=== PATIENT | female | born 1995 | race Two or more races ===

== ENCOUNTER 2023-02-22 11:02 | Outpatient (REF) | payer OTHER, SELFPAY ==
[2023-03-01 22:18] LABS: HPV mRNA E6/E7 rflx Not Detected (Not Detected)
== END 2023-02-22 11:03 | disposition home or self-care (01) ==
LOC: HO.LNP 11:02
PROVIDERS: PCP Internal Medicine; Visit Provider Obstetrics & Gynecology
DX: N93.9 Abnormal uterine and vaginal bleeding, unspecified (principal); L68.0 Hirsutism; Z32.02 Encounter for pregnancy test, result negative
CPT/HCPCS: 81025; 87624; 88142; 99202

== ENCOUNTER 2023-02-22 11:02 | Outpatient (AMB) | payer OTHER, SELFPAY ==
--- NOTE | 2023-02-22 11:29 | MHC.OFFVIS ---
Intake Vital Signs 02/22/23 11:30 Height 5 ft 7 in Weight 377 lb BMI 59.0 Intake Visit Reasons: AUB/PCP Referral Lead Nuclear Medicine Technologist Required: Yes Lead Nuclear Medicine Technologist Language: Independent Living Advisor Name: Kika Information Interpreted: non-clinical & clinical Grab Setter: Grab Setter Present (Kika) Accompanied by: Mother Allergies No Known Allergies Allergy (Verified 02/22/23 11:37) Is last menstrual period known: Yes Last menstrual period: 07/15/22 Post menopausal: No HPI HPI Comments History of Present Illness Details Presenting referred from PCP regarding abnormal uterine bleeding associated with hair growth no nipple discharge. Last co testing was many years ago [facility] Medical History Diabetes Hypertension Family History Maternal Aunt Breast cancer Maternal Uncle Cancer Female Reproductive History Menstrual Age of Menarche: 8 Date of last menstrual period: 07/15/22 control method: none Total pregnancies: 0 Review of Systems Const All systems reviewed & are unremarkable except as noted in HPI and below Card Reports as per HPI Resp Reports as per HPI GI Reports as per HPI and Reports no additional complaints Reports as per HPI Physical Exam Vital Signs: BMI result Body Mass Index 59.0 Const General: cooperative, healthy appearing and comfortable Chest Chest palpation & inspection: normal inspection of the chest and normal palpation of entire chest wall Breast/axilla inspection: normal inspection of the breasts and normal inspection of the axillae Breast/axilla palpation: normal palpation of the breasts, normal palpation of the axillae and no axillary lymphadenopathy Resp Effort & Inspection: normal respiratory effort Auscultation: clear to auscultation bilaterally Percussion: percussion normal Cardio Palpation: normal PMI Rate: regular rate Rhythm: regular rhythm Heart sounds: no murmurs and no rubs Peripheral pulses: Peripheral pulses 2+ throughout GI Inspection: Yes normal to inspection Palpation (GI): Soft to palpation, nontender, no guarding, not rigid and No hepatosplenomegaly present Percussion: Yes normal to percussion Auscultation: normal bowel sounds Rectal Exam - Female: deferred General: Yes bladder normal to palpation External Female Exam: No lesion Speculum Exam - Vagina: normal appearance of the vagina, normal palpation, normal vaginal discharge and not erythematous Speculum Exam - Cervix: normal appearance of the cervix and normal palpation Bimanual exam- vagina & uterus: normal bimanual exam, normal palpation, uterine size normal, bladder normal to palpation, consistency normal and normal palpation Bimanual Exam- Adnexa, other: normal adnexae, no masses and no tenderness Results AMB Test Urine AMB Test Urine Negative Last Edit by KYLE Burt on 02/22/23 11:48 Assessment & Plan Assessment & Plan (1) Abnormal uterine bleeding (AUB): Comment: Hirsutism, diabetes and hypertension possible metabolic syndrome/PCOS Code(s): N93.9 - Abnormal uterine and vaginal bleeding, unspecified Plan: Co testing done, GC and chlamydia taken CBC, TSH, prolactin, FSH/LH, 17 hydroxyprogesterone and testosterone total and free, HCG, and pelvic ultrasound ordered. Discussed with the patient the different causes of abnormal bleeding including thyroid disorders, uterine and ovarian pathology, endometrial hyperplasia, carcinoma and other potential causes. Discussed with the patient the work up including CBC (to r/o anemia), TSH, pelvic Ultrasound, endometrial biopsy to r/o endometrial pathology. All questions answered and the patient verbalized understanding. Instructed the patient to schedule an appointment for an endometrial biopsy in 2 weeks. Orders: Orders AMB HCG Urine Test Today Z32.02 - Encounter for test, result negative 17 Hydroxyprogesterone Today L68.0 - Hirsutism Follicle Stimulating Hormone Today N93.9 - Abnormal uterine and vaginal bleeding, unspecified HCG Quantitative Today N93.9 - Abnormal uterine and vaginal bleeding, unspecified Lutenizing Hormone Today N93.9 - Abnormal uterine and vaginal bleeding, unspecified Prolactin Today N93.9 - Abnormal uterine and vaginal bleeding, unspecified Testosterone, Free/Total Today L68.0 - Hirsutism TSH reflex Free T4 Today N93.9 - Abnormal uterine and vaginal bleeding, unspecified Complete Blood Count no Diff Today N93.9 - Abnormal uterine and vaginal bleeding, unspecified US pelvic and transvaginal Today N93.9 - Abnormal uterine and vaginal bleeding, unspecified Coding Level of Care Code New Pt Level 3 (14265) Diagnoses Abnormal uterine bleeding (AUB) N93.9
[2023-02-22 11:30] VITALS: BMI 59.0
== END 2023-02-22 12:01 | disposition home or self-care (01) ==
LOC: HO.HWS 11:02
PROVIDERS: PCP Internal Medicine; Visit Provider Obstetrics & Gynecology
DX: N93.9 Abnormal uterine and vaginal bleeding, unspecified (principal); Z32.02 Encounter for pregnancy test, result negative
CPT/HCPCS: 99203

== ENCOUNTER 2023-02-22 12:11 | Outpatient (REF) | payer OTHER, SELFPAY ==
[2023-02-22 13:58] LABS: Hematocrit 38.8 % (37.0-47.0); Hemoglobin 11.8 g/dl (12.0-16.0); Mean Corpuscular HGB Conc 30.4 g/dl (31.0-35.0); Mean Corpuscular Hemoglobin 24.9 pg (27.0-33.0); Mean Platelet Volume 13.1 fL (9.4-12.3); Platelet Count 213 X10*3/uL (160-400); Red Blood Count 4.73 X10*6/uL (4.20-5.50); Red Cell Distribution Width 15.9 % (11.0-16.0); White Blood Count 3.9 X10*3/uL (4.8-10.8)
[2023-02-22 14:32] LABS: HCG Quantitative < 2 mIU/mL
[2023-02-22 14:55] LABS: TSH reflex Free T4 1.73 uIU/mL (0.32-4.0)
[2023-02-22 17:47] LABS: CT PCR NOT DETECTED (Not Detect.); NG PCR NOT DETECTED (Not Detect.)
[2023-02-23 23:04] LABS: Lutenizing Hormone 1.7 mIU/mL; Prolactin 5.8 ng/mL
[2023-02-28 14:17] LABS: Testosterone, Total 18 ng/dL (2-45)
== END 2023-02-22 12:12 | disposition home or self-care (01) ==
LOC: HO.LAB 12:11
PROVIDERS: Visit Provider Obstetrics & Gynecology
DX: N93.9 Abnormal uterine and vaginal bleeding, unspecified (principal); L68.0 Hirsutism
CPT/HCPCS: 0353U; 83001; 83002; 83498; 84146; 84402; 84403; 84443; 84702; 85027

== ENCOUNTER 2023-03-07 11:21 | Outpatient (REF) | payer OTHER, SELFPAY ==
--- NOTE | ~2023-03-07 | US_ITS ---
EXAMINATION: US PELVIS COMPLETE CLINICAL INFORMATION: None COMPARISON: None TECHNIQUE: Transabdominal and transvaginal imaging was performed. Technically limited exam. FINDINGS: The uterus is of normal size and echogenicity measuring 8.8 x 3.4 x 5.7 cm. A regular homogeneous endometrium is identified measuring 0.8 cm. Nabothian cysts in the cervix. Is fluid in the endocervical canal. Ovaries were not identified sonographically. No adnexal mass. There is no pelvic free fluid. US/US pelvic and transvaginal IMPRESSION: 1. Trace fluid in the endocervical canal. 2. Ovaries were not identified sonographically. No adnexal mass.
== END 2023-03-07 11:22 | disposition home or self-care (01) ==
LOC: HO.US 11:21
PROVIDERS: PCP Internal Medicine; Visit Provider Obstetrics & Gynecology
DX: N93.9 Abnormal uterine and vaginal bleeding, unspecified (principal)
CPT/HCPCS: 76830; 76856

== ENCOUNTER 2023-04-16 12:07 | Outpatient (AMB) | payer OTHER, SELFPAY ==
--- NOTE | 2023-04-16 12:20 | MHC.OFFVIS ---
Intake Vital Signs 04/16/23 12:21 Height 5 ft 7 in Weight 377 lb BMI 59.0 BP 126/80 Intake Visit Reasons: EMB /US Follow up System Support Technician: System Support Technician Present Allergies No Known Allergies Allergy (Verified 04/16/23 12:20) [facility] Medical History Diabetes Hypertension Family History Maternal Aunt Breast cancer Maternal Uncle Cancer Female Reproductive History Menstrual Age of Menarche: 8 Physical Exam Vital Signs: Last Vital Signs BP 126/80 04/16/23 12:21 BMI result Body Mass Index 59.0 Office Procedures Endometrial Biopsy Details: The patient was counseled regarding the indication and benefits of endometrial sampling to rule out endometrial pathology including not limited to endometrial hyperplasia or endometrial cancer and others; The alternatives (Either do nothing vs. hysteroscopy D&C) & the risks were discussed with the patient including but not limited: pain, uterine perforation, bleeding, infection, possible injury to bladder, bowel, ureter, possible need for blood transfusion with all its possible risks. The patient verbalized understanding all questions answered and signed consent. UPT done in the office was negative The patient was placed into the dorsal lithotomy position; a speculum was inserted in the vagina. Using aseptic technique for the procedure, the cervix was cleansed with Betadine. The anterior lip of the cervix was grasped with a single tooth tenaculum. The uterus was sounded to 7 cm with a 4 mm Pipelle was used. Tissues samples were obtained and placed in formalin, in a patient labeled container and sent to the pathology department. At the end of the procedure, there was minimal bleeding noted The patient tolerated the procedure well and was discharged in good condition with the following instructions: Nothing in the vagina until the bleeding stops. No sex until the bleeding stops, to call if any of the following occurs: fever (>100.4), flu-like symptoms, abdominal pain, heavy bleeding, four smelling vaginal discharge. The patient was instructed to schedule a Follow up appointment in 2 weeks to discuss pathology results of the biopsy and treatment options. This note was generated with a voice recognition program. Some errors may have been overlooked during the review of this note. Sometimes these errors may affect the content or meaning of a given sentence. [id number]-[id number] Biopsy Results AMB Test Urine AMB Test Urine Negative Last Edit by Kika Abarca CMA on 04/16/23 12:27 Results Reviewed Results Reviewed: Laboratory Last Values Tst Clinic Negative 04/16/23 12:26 Assessment & Plan Assessment & Plan Orders: Orders AMB HCG Urine Test Today Z32.02 - Encounter for test, result negative AMB Endometrial Biopsy Today N93.9 - Abnormal uterine and vaginal bleeding, unspecified Coding Level of Care Code Procedure Only CPT Codes Endometrial Biopsy - CPT: 92757-[id number] Biopsy ([id number])
[2023-04-16 12:21] VITALS: BP 126/80; BMI 59.0
== END 2023-04-16 12:53 | disposition home or self-care (01) ==
PROVIDERS: PCP Internal Medicine; Visit Provider Obstetrics & Gynecology
DX: N93.9 Abnormal uterine and vaginal bleeding, unspecified (principal); Z32.02 Encounter for pregnancy test, result negative
CPT/HCPCS: 58100; 90714

== ENCOUNTER 2023-04-16 12:07 | Outpatient (REF) | payer OTHER, SELFPAY | END 2023-04-16 12:08 | disposition home or self-care (01) | LOC: HO.LNP 12:07 | PROVIDERS: PCP Internal Medicine; Visit Provider Obstetrics & Gynecology | DX: N93.9 Abnormal uterine and vaginal bleeding, unspecified (principal) | CPT/HCPCS: 58100; 88305 ==

== ENCOUNTER 2023-05-14 09:41 | Outpatient (AMB) | payer OTHER, SELFPAY ==
[2023-05-14 09:45] VITALS: BP 132/84; BMI 59.0
--- NOTE | 2023-05-14 09:45 | A.OFFVIS_ITS ---
Intake Vital Signs 05/14/23 09:45 Height 5 ft 7 in Weight 377 lb BMI 59.0 BP 132/84 Intake Visit Reasons: pre op for hysterescopy Brewery Technician Required: Yes Brewery Technician Language: Social Worker Health Services Name: Kika Abarca Family Preservation Worker: Family Preservation Worker Present Allergies No Known Allergies Allergy (Verified 05/14/23 09:46) Is last menstrual period known: No Post menopausal: No Patient : No Do you need a note to return to daycare/school/sports/work: Yes (for surgery on sunday) HPI HPI Comments History of Present Illness Details Presenting post EMB for follow-up. The pathology showed: Disordered proliferative endometrium with breakdown; few fragments with some features of polyp; no atypia identified. [facility] Medical History Sleep apnea Hypertension Diabetes Family History Maternal Aunt Breast cancer Maternal Uncle Cancer Female Reproductive History Menstrual Age of Menarche: 8 Date of last menstrual period: 05/27/20 Total pregnancies: 2 Full term: 2 Date of last pap smear: 02/27/23 Review of Systems Card Reports as per HPI and Reports no additional complaints Resp Reports as per HPI and Reports no additional complaints GI Reports as per HPI and Reports no additional complaints Reports as per HPI Physical Exam Vital Signs: Last Vital Signs BP 132/84 05/14/23 09:45 BMI result Body Mass Index 59.0 Const General: cooperative, healthy appearing and comfortable Chest Chest palpation & inspection: normal inspection of the chest and normal palpa tion of entire chest wall Breast/axilla inspection: normal inspection of the breasts and normal inspection of the axillae Breast/axilla palpation: normal palpation of the breasts, normal palpation of the axillae and no axillary lymphadenopathy Resp Effort & Inspection: normal respiratory effort Auscultation: clear to auscultation bilaterally Percussion: percussion normal Cardio Palpation: normal PMI Rate: regular rate Rhythm: regular rhythm Heart sounds: no murmurs and no rubs Peripheral pulses: Peripheral pulses 2+ throughout GI Inspection: Yes normal to inspection Palpation (GI): Soft to palpation, nontender, no guarding, not rigid and No hepatosplenomegaly present Percussion: Yes normal to percussion Auscultation: normal bowel sounds Rectal Exam - Female: deferred Assessment & Plan Assessment & Plan (1) Abnormal uterine bleeding (AUB): Comment: Endometrial polyp on EMB pathology Hirsutism, diabetes and hypertension possible metabolic syndrome/PCOS Code(s): N93.9 - Abnormal uterine and vaginal bleeding, unspecified Plan: Discussed with the patient the results the EMB pathology showing a features of endometrial polyp, recommended hysteroscopy D&C possible polypectomy/myomectomy. Discussed with the patient the procedure , all benefits and risks including but not limited to inability to complete the procedure , bleeding, infection, possible need for blood transfusion with all its risk ( HIV,syphilis, Hepatitis, anaphylaxis shock, others..), injury to bladder, rectum, possible need for laparoscopy/laparotomy or hysterectomy. The patient verbalized understanding and signed the consent. Instructions given the patient to schedule a 2 week postoperative appointment Coding Level of Care Code Est Pt Level 3 (68484) Diagnoses Abnormal uterine bleeding (AUB) N93.9
== END 2023-05-14 10:10 | disposition home or self-care (01) ==
PROVIDERS: PCP Internal Medicine; Visit Provider Obstetrics & Gynecology
DX: N93.9 Abnormal uterine and vaginal bleeding, unspecified (principal)
CPT/HCPCS: 99213

== ENCOUNTER → 2023-05-14 09:41 | Outpatient (BNVA) | payer OTHER, SELFPAY | PROVIDERS: PCP Internal Medicine; Visit Provider Obstetrics & Gynecology | DX: N93.9 Abnormal uterine and vaginal bleeding, unspecified (principal) | CPT/HCPCS: 99212 ==

== ENCOUNTER → 2023-05-21 06:56 | Day surgery (SDC) | payer OTHER, SELFPAY ==
--- NOTE | 2023-05-18 08:13 | P.CONAN_ITS ---
Documented by User: Eugenia Perez NP 05/31/23 13:40 HPI - Anesthesia Eval Consult details Narrative: Cx'd DOS for uncontrolled HTN 28yo F for D&C Hysteroscopy,poss myomectomy,poss polypectomy PMFSH Active Problems Active Problems: All Active Problems (Updated 05/14/23 @ 09:59 by Jayme Soares MD) Abnormal uterine bleeding (AUB) (Acute) Past Medical History Medical History Sleep apnea Hypertension Diabetes Family History Family History Maternal Aunt Breast cancer Maternal Uncle Cancer Meds Allergies Allergy/AdvReac Type Severity Reaction Status Date / Time No Known Allergies Allergy Verified 05/21/23 07:02 Home Medications Medication Instructions Recorded Confirmed Last Taken Type acetaminophen 325 mg tablet 650 mg PO TID PRN mild pain 02/22/23 Unknown Histor y albuterol sulfate 90 mcg/actuation 2 puff inhalation Q4H PRN wheezing 02/22/23 Unknown History aerosol inhaler (Ventolin HFA) amlodipine 5 mg tablet 5 mg PO DAILY blood pressure 02/22/23 Unknown History ferrous sulfate 324 mg (65 mg 324 mg PO DAILY 02/22/23 Unknown History iron) tablet,delayed release fluticasone propionate 110 2 puff inhalation BID 02/22/23 Unknown History mcg/actuation HFA aerosol inhaler (Flovent HFA) metformin 500 mg tablet,extended 0 mg PO 02/22/23 Unknown History release 24 hr naproxen 500 mg tablet 500 mg PO BID PRN pain 02/22/23 Unknown History omeprazole 20 mg capsule,delayed 20 mg PO BID 02/22/23 Unknown History release Exam Exam Date and Time: May 18, 2023 0813 Assessment and Plan Assessment Anesthesia Assessment: Chart Reviewed Documented by User: Femi Martínez MD 06/11/23 09:04 HPI - Anesthesia Eval Consult details Narrative: Cx'd Day of Surgery for uncontrolled HTN. 28yo F for D&C Hysteroscopy,poss myomectomy,poss polypectomy PMFSH Past Medical History Medical History Sleep apnea Hypertension Diabetes Family History Family History Maternal Aunt Breast cancer Maternal Uncle Cancer Meds Allergies Allergy/AdvReac Type Severity Reaction Status Date / Time No Known Allergies Allergy Verified 05/21/23 07:02 Home Medications Medication Instructions Recorded Confirmed Last Taken Type acetaminophen 325 mg tablet 650 mg PO TID PRN mild pain 02/22/23 Unknown History albuterol sulfate 90 mcg/actuation 2 puff inhalation Q4H PRN wheezing 02/22/23 Unknown History aerosol inhaler (Ventolin HFA) amlodipine 5 mg tablet 5 mg PO DAILY blood pressure 02/22/23 Unknown History ferrous sulfate 324 mg (65 mg 324 mg PO DAILY 02/22/23 Unknown History iron) tablet,delayed release fluticasone propionate 110 2 puff inhalation BID 02/22/23 Unknown History mcg/actuation HFA aerosol inhaler (Flovent HFA) metformin 500 mg tablet,extended 0 mg PO 02/22/23 Unknown History release 24 hr naproxen 500 mg tablet 500 mg PO BID PRN pain 02/22/23 Unknown History omeprazole 20 mg capsule,delayed 20 mg PO BID 02/22/23 Unknown History release
[2023-05-21 07:08] VITALS: BMI 59.0
[2023-05-21 07:21] LABS: Glucose, Whole Blood 200 mg/dL (60-115)
--- NOTE | 2023-05-21 07:55 | PC.NURSE ---
Dr. Martínez updated that patient BP was 179/127, different arm, different sized cuff used after 15 minutes and next result was 168/111. Patient stated that she also stopped taking her metformin on her own last month due to diarrhea, and she did not update her PCP regarding it. Patient POC was 200. After Dr. Martínez assessed patient, we were notified that Dr. Soares had cancelled the case due to personal reasons. Patient was educated by Dr. Martínez and grocery team member that the case is cancelled and that the patient will require medical clearance prior to re-scheduled date and he also educated patient regarding her diabetes diagnosis and bp results and importance of compliance. Patient verbalized understanding of all and left with family. No IV was placed this morning. Patient left will her belongings which was clothes only.
== END ==
PROVIDERS: PCP Internal Medicine; Visit Provider Obstetrics & Gynecology
DX: N93.9 Abnormal uterine and vaginal bleeding, unspecified (principal); Z53.8 Procedure and treatment not carried out for other reasons; I10 Essential (primary) hypertension; E11.9 Type 2 diabetes mellitus without complications
CPT/HCPCS: 82947

== ENCOUNTER 2023-06-15 10:28 | Day surgery (SDC) | payer OTHER, SELFPAY ==
[2023-06-15] VITALS (9 sets, daily range): BP systolic 122–149; BP diastolic 77–100; PULSE 84–98; RESP 16–40; TEMP 36.5–37.2; O2SAT 96–100; BMI 61.0
--- NOTE | 2023-06-15 09:43 | HO.ANESPROP2 ---
HPI - Anesthesia Eval Consult details Narrative: 28 yo female patient for D&C, Hysteroscopy, poss myomectomy, poss polypectomy PMFSH Active Problems Active Problems: All Active Problems (Updated 06/15/23 @ 09:47 by Kelly Wynn MD) Abnormal uterine bleeding (AUB) (Acute) HODA. Uses CPAP HTN DM Asthma. SOB with climbing stairs but only uses inhaler prn Past Medical History Medical History Sleep apnea Hypertension Diabetes Family History Family History Maternal Aunt Breast cancer Maternal Uncle Cancer Family history of problems with anesthesia: No Surgical History Surgical History (Updated 06/15/23 @ 10:58 by Hiwot Alex) Hx of tonsillectomy History of Problems with Anesthesia: No Social History Social History Patient Tobacco Use Status: Never used Tobacco Meds Allergies Allergy/AdvReac Type Severity Reaction Status Date / Time No Known Allergies Allergy Verified 06/15/23 10:59 Home Medications Medication Instructions Recorded Confirmed Last Taken Type acetaminophen 325 mg tablet 650 mg PO TID PRN mild pain 02/22/23 06/15/23 Unknown History albuterol sulfate 90 mcg/actuation 2 puff inhalation Q4H PRN wheezing 02/22/23 06/15/23 Unknown History aerosol inhaler (Ventolin HFA) amlodipine 5 mg tablet 10 mg PO DAILY blood pressure 02/22/23 06/15/23 06/15/23 History ferrous sulfate 324 mg (65 mg 324 mg PO DAILY 02/22/23 06/15/23 06/14/23 History iron) tablet,delayed release fluticasone propionate 110 2 puff inhalation BID 02/22/23 06/15/23 Unknown History mcg/actuation HFA aerosol inhaler (Flovent HFA) metformin 500 mg tablet,extended 1,500 mg PO DAILY 02/22/23 06/15/23 06/14/23 History release 24 hr omeprazole 20 mg capsule,delayed 20 mg PO BID 02/22/23 06/15/23 06/15/23 History release Exam Height,Weight and Vital Signs: Height 5 ft 7 in Weight 176.6 kg Vital Signs Temp Pulse Resp BP Pulse Ox O2 Del Method 06/15/23 11:02 98.4 F 89 16 149/100 H 96 Room Air Pertinent Lab Results Pertinent Lab Results: Lab Results 06/15/23 06/15/23 Range/Units 10:40 10:58 POC Glucose 129 H (60-115) mg/dL Urine Test NEGATIVE (NEGATIVE) Airway Mallampati Class: III TM Dist: >3cm Neck ROM: Full Loose/Missing/Broken Teeth: Yes (Missing molars. Front teeth misshapen and small. Look like chipped but patient denies) Heart: RRR Lungs: CTAB. No wheezing Assessment and Plan Assessment Anesthesia Assessment: Anesthesia Plan Discussed and Chart Reviewed Final Anesthetic Review Family History of Problems with Anesthesia: No History of Problems with Anesthesia: No NPO: Yes ASA Class: III Final Preanesthetic Review: No Changes in Pt Med Stat, Meds/Allgs Chart Reviewed, Consent Obtained/Reviewed and Anes Risks/Benef Reviewed Patient Risk: Intermediate Procedure Risk: Low Assessment/Block/Sedation in SS: Assess/Block/Sedation-SS Anesthetic Plan Anesthetic Plan: GA Disposition: Standard PACU
[2023-06-15 10:59] LABS: UPreg QC Valid YES; Urine Pregnancy NEGATIVE (NEGATIVE)
[2023-06-15 11:05] LABS: Glucose, Whole Blood 129 mg/dL (60-115)
[2023-06-15] MEDS: Lactated Ringers 1,000 ML 100 ML IVCONT (11:32)
--- NOTE | 2023-06-15 11:41 | MHC.SHP ---
Pre-Procedural Eval Section A Date of Service: 06/15/23 The patient is an INPATIENT: No Changes since office visit: No Cold of Flu in the past 2 weeks, No New Medical Problems, No Changes in Medication and No Patient answered all questions The History & Physical has been completed within 30 days and I have reviewed it.: Yes Section B Chief Complaint: Abnormal uterine and vaginal bleeding, unspecified Allergies: Allergies Allergy/AdvReac Type Severity Reaction Status Date / Time No Known Allergies Allergy Verified 06/15/23 10:59 Plan Diagnosis/Plan: Unchanged I have reviewed the history and physical and performed a pertinent physical examination on my patient. No changes have occurred unless specified. Time Spent With Patient Time: Total time managing care of this patient today ____ minutes.
--- NOTE | 2023-06-15 12:40 | PM.OP ---
Brief Operative Note Date of Service: 06/15/23 Pre-op diagnosis: Abnormal uterine bleeding with Endometrial polyp on EMB pathology Post-op diagnosis: same (Endometrial polyp) Procedure: Hysteroscopy D&C, Polypectomy Surgeon: Jayme Soares MD Anesthesia: GLMA Was an Dough Cutter used for this Procedure?: No Estimated blood loss (mL): 0 Pathology: other (Endometrial Scrapping. Polyp) Condition: stable Disposition: PACU
--- NOTE | 2023-06-15 12:41 | W.PM.OPN ---
Operative Note Operative Note Date of Service: 06/15/23 Narrative: Preop Diagnosis: Abnormal uterine bleeding with Endometrial polyp on EMB pathology Operation: Diagnostic Hysteroscopy, Dilataion & Curettage and polypectomy Post Op Diagnosis: Endometrial Polyp QBL: Minimal Anesthesia: GLMA Surgeon: Jayme Soares MD Single End Sewer: None Complication: None Pathology: Endometrial Scrapings, Endometrial polyp Procedure: The patient was put in the dorsal lithotomy position, scrubbed, and draped in the usual manner. A sterile speculum was inserted in the patient's vagina. The anterior lip of the cervix was grasped with a single tooth tenaculum. The cervix was dilated up to 5 mm, then the scope was inserted in the patient's uterus. Inspection revealed endometrial polyp. The Myosure Reach device was used; it was introduced through the operative channel and polypectomy done with no complications. The scope was then taken out from the uterine cavity, sharp curettings was carried on with minimal to moderate amount of tissues retrieved. At the end of the procedure, all instruments were taken out of the patient uterine and vaginal cavity. The single tooth tenaculum was removed and homeostasis was assured using pressure,. The patient tolerated the procedure well and was transferred to the PACU in a stable condition.
[2023-06-15] MEDS: Acetaminophen 1,000 MG/100 ML PIGGYBACK 400 MG IV (13:26)
--- NOTE | 2023-06-15 13:30 | PC.RT ---
RT called from PACU. RN requested Cpap at bedside post op for pt. Cpap placed at bedside, pt arrive 96% on simple mask, MD requested Cpap on standby, RN aware. Rt return 40 min later, pt awake and coop in bed up 45 degrees, spo2 100% on simple mask. RN states pt ok, cpap on standby at this time, pt in no respiratory distress.
== END 2023-06-15 15:27 | disposition home or self-care (01) ==
PROVIDERS: Nurse Practitioner; PCP Internal Medicine; Visit Provider Obstetrics & Gynecology
PROC: 0UDB8ZZ Extraction of Endometrium, Via Natural or Artificial Opening Endoscopic (ICD-10-PCS; CPT 58558; principal; 2023-06-15 12:20)
DX: N93.9 Abnormal uterine and vaginal bleeding, unspecified (principal); N84.0 Polyp of corpus uteri; I10 Essential (primary) hypertension; E11.9 Type 2 diabetes mellitus without complications; G47.33 Obstructive sleep apnea (adult) (pediatric); J45.909 Unspecified asthma, uncomplicated; Z79.51 Long term (current) use of inhaled steroids; Z79.84 Long term (current) use of oral hypoglycemic drugs; Z79.899 Other long term (current) drug therapy; Z99.89 Dependence on other enabling machines and devices
CPT/HCPCS: 58558; 81025; 82947; 88305; J0131; J1100; J2250; J2405; J2704; J3010

== ENCOUNTER → 2023-06-15 10:28 | Outpatient (BNV) | payer OTHER, SELFPAY | PROVIDERS: PCP Internal Medicine; Visit Provider Obstetrics & Gynecology | DX: N93.9 Abnormal uterine and vaginal bleeding, unspecified (principal); N84.0 Polyp of corpus uteri | CPT/HCPCS: 58558 ==

== ENCOUNTER 2023-06-27 15:32 | Outpatient (AMB) | payer OTHER, SELFPAY ==
--- NOTE | 2023-06-27 15:35 | A.OFFVIS_ITS ---
Intake Vital Signs 06/27/23 15:38 Height 5 ft 7 in Weight 377 lb BMI 59.0 BP 136/84 Intake Visit Reasons: post op Material Control Analyst Required: Yes Material Control Analyst Language: Home Appraiser Name: Kika WRIGHT Information Interpreted: non-clinical & clinical Accompanied by: Mother Allergies No Known Allergies Allergy (Verified 06/27/23 15:39) Is last menstrual period known: No HPI HPI Comments History of Present Illness Details The patient is presenting post hysteroscopy D&C with polypectomy , no complaints minimal vaginal bleeding no feverishness chills or abdominal pain. The pathology showed the following: A. Endometrium, curettage: Disordered proliferative endometrium with breakdown, ectatic vessels, and fibrin thrombi; no atypia or carcinoma. B. Endometrial polyp, resection: Disordered proliferative endometrium with breakdown, ectatic vessels, and fibrin thrombi; no atypia or carcinoma. Comment: Some fragments may be derived from benign polyps. The finding suggest anovulatory cycles The following workup for AUB was done.: H&H= 11.8/38.8 TSH, prolactin, hCG, testosterone total and free, 17 hydroxyprogesterone, GC and chlamydia were negative. Endometrial biopsy pathology showed disordered proliferative endometrium with no evidence of hyperplasia and/or malignancy and fragments of endometrial polyp Co testing was done was negative. Pelvic ultrasound showed the following: IMPRESSION: 1. Trace fluid in the endocervical francisco l. 2. Ovaries were not identified sonograp hically. No adnexal mass. [facility] Medical History Sleep apnea Hypertension Diabetes Surgical History Hx of tonsillectomy Family History Maternal Aunt Breast cancer Maternal Uncle Cancer Social History Patient Tobacco Use Status: Never used Tobacco Female Reproductive History Menstrual Age of Menarche: 8 Review of Systems Const All systems reviewed & are unremarkable except as noted in HPI and below Reports as per HPI and Reports no additional complaints GI Reports no additional complaints Reports no additional complaints Physical Exam Vital Signs: Last Vital Signs BP 136/84 06/27/23 15:38 BMI result Body Mass Index 59.0 Assessment & Plan Assessment & Plan (1) Abnormal uterine bleeding (AUB): Comment: Hirsutism, diabetes and hypertension PCOS Code(s): N93.9 - Abnormal uterine and vaginal bleeding, unspecified Plan: Discussed with the patient the results of her blood work included TSH, prolactin, testosterone, 17 hydroxyprogesterone and pathology the. Explained to the patient that she has a diagnosis of PCOS. D/w the patient the association of PCOS withdiabetes, hypertension, heart disease, hypercholesterolemia, endometrial hyperplasia and/or cancer if untreated and an increase in the risk of breast cancer. Recommended for the patient the following: -To call her pcp to screen for cardiovascular risk and manage hypertension and diabetes. -Instructions given to patient to increase exercise combined with dietary changes reduce the risk of diabetes, explained to the patient that reduction in body weight has been associated with improved rate and decreased hirsutism as well as improvement in glucose tolerance and lipid levels -For her Menstrual cycle control: Discussed with the patient the following options of treatment : Combination low-dose hormonal contraceptives are recommended as the primary treatment for menstrual disorder, but given her diabetes and hypertension is contraindicated Or Progestins: Cyclic progesterone versus Mirena IUD After discussion all the pros and cons risks benefits of each were discussed with the patient, the patient decided to proceed cyclic progesterone since the patient is interested in fertility. So Prometrium 200 mg p.o. q.d. day 15-24 sent to patient's pharmacy. -discussed with the patient different Treatment of Hirsutism or the patient not interested at this point -If the patient is interested in will send pt for a consult to reproductive endocrinology. Instructions given the patient to schedule a 3 months follow-up appointment. All questions answered. Pt verbalized understanding Medications: New progesterone micronized (Prometrium) Take the pill 1 tablet a day cyclically every month from day 15-24 day 1 being the 1st day of next menstrual cycle 200 mg PO BEDTIME 30 caps 0RF 10 days Coding Level of Care Code Est Pt Level 3 (14328) Diagnoses Abnormal uterine bleeding (AUB) N93.9
[2023-06-27 15:38] VITALS: BP 136/84; BMI 59.0
== END 2023-06-27 16:20 | disposition home or self-care (01) ==
LOC: HO.HWS 15:32
PROVIDERS: PCP Internal Medicine; Visit Provider Obstetrics & Gynecology
DX: N93.9 Abnormal uterine and vaginal bleeding, unspecified (principal)
CPT/HCPCS: 99213

== ENCOUNTER → 2023-06-27 15:32 | Outpatient (BNVA) | payer OTHER, SELFPAY | PROVIDERS: PCP Internal Medicine; Visit Provider Obstetrics & Gynecology | DX: N93.9 Abnormal uterine and vaginal bleeding, unspecified (principal) | CPT/HCPCS: 99212 ==

== ENCOUNTER 2023-07-24 08:18 | Emergency (ER) | payer OTHER, SELFPAY ==
--- NOTE | ~2023-07-24 | US_ITS ---
EXAMINATION: US DIAGNOSTIC ULTRASOUND BREAST, RIGHT CLINICAL INFORMATION: Swelling, pain, rule out abscess. COMPARISON: None available. TECHNIQUE: Ultrasound of the right breast is performed with real-time blakely scale imaging and color Doppler. FINDINGS: There is a complex appearing mixed echogenicity fluid collection within the right lower inner breast measuring approximately 2.5 x 1.9 x 0.7 cm, consistent with an abscess. This appears to lie approximately 2 cm deep to this scan. There appears to be mild skin thickening likely related to mastitis. US/US breast RT limited IMPRESSION: -Small mixed echogenicity abscess lower inner quadrant right breast as detailed. -Skin thickening suggestive mastitis right breast. ASSESSMENT: BI-RADS 2: Benign RECOMMENDATION: 1. Patient should be managed based on the clinical impression. 2. Otherwise, routine annual screening mammography at age 38.
--- NOTE | ~2023-07-24 | US_ITS ---
Ultrasound-guided aspiration of the right breast mass. INDICATIONS: Mass in the medial aspect of the right breast After informed and written consent was obtained an official timeout was performed immediately prior to the procedure. PROCEDURE: Initial ultrasound exam demonstrated an ill-defined fluid collection in the medial aspect of the right breast measuring 1.28 x 2.9 x 1.3 cm. The skin was prepped and draped in the usual fashion. 1% Xylocaine was used for local anesthetic. An 18-gauge needle was placed into the fluid collection and 2-3 mL of bloody purulent fluid was aspirated and sent for Gram stain, culture and sensitivity. US/US guided fine needle asp IMPRESSION: Ultrasound-guided aspiration of the medial aspect of the right breast. 2-3 mL of bloody purulent fluid was aspirated and sent for Gram stain, culture and sensitivity.
[2023-07-24 08:22] VITALS: BP 165/105; PULSE 88; RESP 17; TEMP 35.9; O2SAT 96; BMI 58.9
--- NOTE | 2023-07-24 09:12 | ED.GENADULT ---
HPI - General Adult General Chief complaint: General Medical Stated complaint: R Breast Pain Time Seen by Provider: 07/24/23 09:04 Source: patient, family, RN notes reviewed and estate and trust tax principal (Track Mechanic present) Mode of arrival: ambulatory Limitations: language barrier History of Present Illness HPI narrative: This is a 28-year-old Sammarinese-speaking female with a history of hypertension, diabetes, sleep apnea, presenting to the emergency department, accompanied by her mother, with complaints of right breast pain. Patient reports that several years ago she had similar symptoms however this resolved without any antibiotics or surgical intervention. She denies any nipple discharge. Denies any fevers, chills, chest pain, shortness of breath, abdominal pain, nausea, vomiting or diarrhea. Denies any breast trauma. She is not breast-feeding at this time. No other complaints or concerns at this time. MD complaint: Right breast pain Onset (ago): day(s) Quality: aching Pain Consistency: constant Relieving factors: none Exacerbating factors: none Associated symptoms: denies other symptoms Treatments prior to arrival: none Related Data Home Medications Medication Instructions Recorded Confirmed acetaminophen 325 mg tablet 650 mg PO TID PRN mild pain 02/22/23 06/15/23 albuterol sulfate 90 mcg/actuation 2 puff inhalation Q4H PRN wheezing 02/22/23 06/15/23 aerosol inhaler (Ventolin HFA) ferrous sulfate 324 mg (65 mg 324 mg PO DAILY 02/22/23 06/15/23 iron) tablet,delayed release fluticasone propionate 110 2 puff inhalation BID 02/22/23 06/15/23 mcg/actuation HFA aerosol inhaler (Flovent HFA) metformin 500 mg tablet,extended 1,500 mg PO DAILY 02/22/23 06/15/23 release 24 hr omeprazole 20 mg capsule,delayed 20 mg PO BID 02/22/23 06/15/23 release amlodipine 10 mg tablet 10 mg PO DAILY 06/27/23 Previous Rx's Medication Instructions Recorded progesterone micronized 200 mg 200 mg PO BEDTIME 10 days #30 caps 06/27/23 capsule (Prometrium) cephalexin 250 mg capsule 250 mg PO QID 7 days #28 caps 07/24/23 doxycycline hyclate 100 mg capsule 100 mg PO BID 7 days #14 caps 07/24/23 Allergies Allergy/AdvReac Type Severity Reaction Status Date / Time No Known Allergies Allergy Verified 07/24/23 08:21 Review of Systems Review of Systems: Yes all other systems are reviewed and are negative Constitutional: Constitutional: Reports as per [facility] Past Medical History Attestation statement: The following information was validated with the patient. Medical History Sleep apnea Hypertension Diabetes Surgical History Hx of tonsillectomy Family History Family History Maternal Aunt Breast cancer Maternal Uncle Cancer Social History Social History Alcohol intake: current Alcohol intake frequency: a few times a month Patient Tobacco Use Status: Never used Tobacco Smoked in Last 30 Days: No Substance Use Type: Other Substance Use Type Other:: marijuana edibles Substance Use Frequency: Occasionally Advance Directives: No Advance Directives Information Provided: Yes Physical Exam ED Vital Signs: Vital Signs - 24 hr 07/24/23 08:22 07/24/23 09:36 07/24/23 13:56 Temperature 96.7 F L 98.2 F 98 F Pulse Rate 88 91 99 Respiratory Rate 17 20 16 Blood Pressure 165/105 H 147/95 H 160/109 H Pulse Oximetry 96 97 97 Oxygen Delivery Method Room Air Room Air Room Air 07/24/23 16:59 Temperature 98 F Pulse Rate 70 Respiratory Rate 16 Blood Pressure 160/106 H Pulse Oximetry 97 Oxygen Delivery Method Room Air BMI result Body Mass Index 58.9 Const General: cooperative, comfortable and no acute distress Orientation/consciousness: patient oriented x3 Limitations: no limitations [facility] Head: Yes normal to inspection, Yes normocephalic and Yes atraumatic Ears: hearing grossly normal bilaterally General nose exam: Normal external nose present Face and sinus: Yes normal facial exam Mouth: Normal oral and palatal mucosa present, oropharynx normal and moist mucous membranes Throat: Yes posterior oropharynx normal Eyes General: appearance normal, both eyes and all related structures Eyelids: Yes eyelids normal Conjunctivae: conjunctivae normal Sclerae: sclerae normal Pupils: Equal, round and reactive pupils present EOM: EOMs intact bilaterally Neck Neck: Yes normal visual inspection, Yes full ROM and Yes no lymphadenopathy Lymphatic: no lymphadenopathy noted Chest Other: Examination performed with Pita lambert RN, present at all times. Right breast large, with 2 cm x 2 cm indurated mass noted to the right breast at approximately 3 oclock position, with surrounding erythema and warmth. No nipple discharge noted. Chest palpation & inspection: normal inspection of the chest Resp Effort & Inspection: normal respiratory effort and able to speak in complete sentences Auscultation: clear to auscultation bilaterally, no crackles, no rales, no rhonchi and no wheezes Cardio Rate: regular rate Rhythm: regular rhythm Heart sounds: S1 normal heart sound present and S2 normal heart sound present GI Inspection: Yes normal to inspection Skin General skin exam: no rashes or lesions noted Trauma: no lacerations or abrasions Wounds: no wounds Neuro General: patient oriented x3 and moves all extremities Cranial nerves: Yes Equal, round and reactive pupils present Extrem General: Yes normal to inspection Right upper extremity: normal to inspection Left upper extremity: normal to inspection Right lower extremity: normal to inspection Left lower extremity: normal to inspection Course Reevaluation(s) Reevaluation #1: Ultrasound revealing a 2.5 x 1.9 x 0.7 cm fluid collection consistent with an abscess. Dr. Efra bledsoe, surgical PA saw and evaluated patient. Patient needs bedside breast needle aspiration. Time: 13:49 Reevaluation #2: Bedside breast needle aspiration performed at bedside by Samantha landis PA-C without any expression, recommends IR. Reevaluation #3: IR performed ultrasound-guided needle aspiration with success of extracting 2 cc of fluid which was then sent to the lab. Discharge patient on Keflex and doxycycline. Educated the importance of keeping close eye on region and to return with any new or worsening symptoms. Patient will follow-up with surgery in 1 week to ensure that symptoms are improving. Patient understands and agrees with plan. Patient stable for discharge. Medications Administered Discontinued Medications Generic Name Dose Route Start Last Admin Trade Name Freq PRN Reason Stop Dose Admin Lidocaine HCl 5 ml 07/24/23 16:20 07/24/23 16:20 Lidocaine Hcl 1 % Mpf 5 Ml Vial SUBCUT 07/24/23 16:21 5 ml ONCE ONE Administration Medical Decision Making Medical Decision Making MDM Narrative: This is a 28-year-old female, Sammarinese-speaking female with a history of hypertension, diabetes, sleep apnea, presenting to the emergency department with complaints of right breast redness, swelling, and pain x 4 days. On arrival, patient mildly hypertensive at 165/105, patient is afebrile. Patient is nontoxic appearing. Right breast with erythema and induration, concerning for abscess versus cellulitis. Mastitis also considered. Patient has no overlying peau d'orange skin changes. No nipple discharge. No other masses appreciated in the right breast. Plan: Labs, ultrasound right breast Differential Diagnosis Differential Diagnoses: The differential diagnosis associated with the presentation includes See above Admission/Observation Consideration of admission/observation: Escalation of care including admission/observation considered Lab Data MDM Lab Attestation statement: I reviewed the patient's lab results. No leukocytosis, stable H&H, glucose 171, patient has a history of hypertension, mildly elevated LFTs, no previous for comparison 07/24/23 09:42 07/24/23 09:42 Labs: Lab Results 07/24/23 Range/Units 09:42 WBC 5.1 (4.8-10.8) X10*3/uL RBC 4.63 (4.20-5.50) X10*6/uL Hgb 11.5 L (12.0-16.0) g/dl Hct 38.3 (37.0-47.0) % MCV 82.7 (80.0-98.0) fL MCH 24.8 L (27.0-33.0) pg MCHC 30.0 L (31.0-35.0) g/dl RDW 15.9 (11.0-16.0) % Plt Count 232 (160-400) X10*3/uL MPV 11.9 (9.4-12.3) fL Immature Gran % (Auto) 0.2 (0.0-0.4) % Neut % (Auto) 51.4 (45-73) % Lymph % (Auto) 38.9 (20-40) % [place] % (Auto) 7.7 (2-11) % Eos % (Auto) 1.6 (0-4) % Baso % (Auto) 0.2 (0-2) % Lymph # (Auto) 2.0 (1.2-4.9) X10*3/uL [place] # (Auto) 0.4 (0.1-1.2) X10*3/uL Eos # (Auto) 0.1 (0.0-0.4) X10*3/uL Baso # (Auto) 0.0 (0.0-0.2) X10*3/uL Abs Immat Gran (auto) 0.01 (0.00-0.03) X10*3/uL Absolute Neuts (auto) 2.6 (2.0-8.3) x10*3/uL Absolute Nucleated RBC 0.000 (0.0-0.012) X10*3/uL Nucleated RBC % (auto) 0.0 (0.0-0.2) /100WBC Sodium 140 (135-145) mmol/L Potassium 4.1 (3.3-5.1) mmol/L Chloride 104 (96-108) mmol/L Carbon Dioxide 29 (22-29) mmol/L Anion Gap 11 L (12-20) BUN 8 L (9-16) mg/dL Creatinine 0.83 (0.5-1.4) mg/dL Estim Creat Clear Calc 164.6 Estimated GFR > 60 Random Glucose 171 H (60-115) mg/dL Calcium 9.3 (8.4-10.2) mg/dL Total Bilirubin 0.5 (0.0-1.0) mg/dL AST 35 H (5-31) U/L ALT 38 H (0-31) U/L Alkaline Phosphatase 106 (39-117) U/L Total Protein 8.3 H (6.5-8.0) g/dL Albumin 3.6 (3.5-5.0) g/dL Radiology Impression Discussion of test interpretation with radiology: I have reviewed the radiologist's reading. Radiologist Impression: EXAMINATION: US DIAGNOSTIC ULTRASOUND BREAST, RIGHT CLINICAL INFORMATION: Swelling, pain, rule out abscess. COMPARISON: None available. TECHNIQUE: Ultrasound of the right breast is performed with real-time blakely scale imaging and color Doppler. FINDINGS: There is a complex appearing mixed echogenicity fluid collection within the right lower inner breast measuring approximately 2.5 x 1.9 x 0.7 cm, consistent with an abscess. This appears to lie approximately 2 cm deep to this scan. There appears to be mild skin thickening likely related to mastitis. US/US breast RT limited IMPRESSION: -Small mixed echogenicity abscess lower inner quadrant right breast as detailed. -Skin thickening suggestive mastitis right breast. ASSESSMENT: BI-RADS 2: Benign RECOMMENDATION: 1. Patient should be managed based on the clinical impression. 2. Otherwise, routine annual screening mammography at age 38. Dictated By: Chet Rivera MD Chronic Conditions Patient?s care impacted by: Diabetes Discharge Plan Discharge Clinical Impression: Abscess of right breast Patient Disposition: Home, Self-Care Instructions: Mastitis (ED), Abscess (ED) Additional Instructions: You were seen in the emergency department due to pain in your right breast. We are placing you on antibiotics, please complete the full course even if you are feeling better You had an abscess in her right breast which had to be drained with a needle. This was done by Interventional Radiology. The drainage from this abscess was sent to the lab, we will call you with any abnormal results. Please apply warm compresses to the area 6 times per day. Keep a close eye on the region, if increased redness, swelling, fevers, or pain occurs, please return for re-evaluation. Please follow-up with the surgeon, Dr. Kraus, in 1 week to ensure improvement of your symptoms. Call to make an appointment. Lo atendieron en el departamento de emergencias debido a un dolor en el seno derecho. Le estamos recetando antibi?ticos; complete el tratamiento completo incluso si se siente mejor. Ten?a un absceso en el seno derecho que tuvo que ser drenado con reji aguja. [place] fue realizado por Radiolog?a Intervencion[facility]. El drenaje de hiro absceso se envi? al laboratorio; lo llamaremos si hay resultados anormales. Aplique compresas tibias en el ?anastasia 6 veces al d?a. Est? atento a la apolonia?n; si aumenta el enrojecimiento, la hinchaz?n, la fiebre o el dolor, regrese para reji nueva evaluaci?n. Realice un seguimiento con el cirujano, Dr. Kraus, en 1 semana para garantizar la mejora de porfirio s?ntomas. Llama para concertar reji sherrill. Prescriptions: New doxycycline hyclate 100 mg capsule 100 mg PO BID 7 Days Qty: 14 0RF cephalexin 250 mg capsule 250 mg PO QID 7 Days Qty: 28 0RF No Action metformin 500 mg tablet extended release 24 hr 1,500 mg PO DAILY ferrous sulfate 324 mg (65 mg iron) tablet,delayed release (DR/EC) 324 mg PO DAILY omeprazole 20 mg capsule,delayed release(DR/EC) 20 mg PO BID acetaminophen 325 mg tablet 650 mg PO TID PRN (Reason: mild pain) fluticasone propionate [Flovent HFA] 110 mcg/actuation HFA aerosol inhaler 2 puff inhalation BID albuterol sulfate [Ventolin HFA] 90 mcg/actuation HFA aerosol inhaler 2 puff inhalation Q4H PRN (Reason: wheezing) amlodipine 10 mg tablet 10 mg PO DAILY progesterone micronized [Prometrium] 200 mg capsule 200 mg PO BEDTIME 10 Days Qty: 30 0RF Rx Instructions: Take the pill 1 tablet a day cyclically every month from day 15-24 day 1 being the 1st day of next menstrual cycle Referrals: Idris Kraus MD [Physician] - 1 week Pao Rey MD [Primary Care Provider] - Interventions: ED Discharge Assessment Last Done: 07/24/23 16:59 Discharge Date/Time: 07/24/23 16:59 Print Language: Sammarinese
[2023-07-24 09:36] VITALS: BP 147/95; PULSE 91; RESP 20; TEMP 36.8; O2SAT 97
[2023-07-24 09:46] LABS: MANUAL DIFF FLAG NO
[2023-07-24 09:47] LABS: Basophils Percent Auto 0.2 % (0-2); Eosinophils Absolute Auto 0.1 X10*3/uL (0.0-0.4); Eosinophils Percent Auto 1.6 % (0-4); Hematocrit 38.3 % (37.0-47.0); Hemoglobin 11.5 g/dl (12.0-16.0); Imm Gran Abs Auto 0.01 X10*3/uL (0.00-0.03); Imm Gran Pct Auto 0.2 % (0.0-0.4); Lymphocytes Percent Auto 38.9 % (20-40); Mean Corpuscular Hemoglobin 24.8 pg (27.0-33.0); Mean Corpuscular Volume 82.7 fL (80.0-98.0); Mean Platelet Volume 11.9 fL (9.4-12.3); Monocytes Absolute Auto 0.4 X10*3/uL (0.1-1.2); Monocytes Percent Auto 7.7 % (2-11); Neutrophils Absolute Auto 2.6 x10*3/uL (2.0-8.3); Neutrophils Percent Auto 51.4 % (45-73); Platelet Count 232 X10*3/uL (160-400); Red Blood Count 4.63 X10*6/uL (4.20-5.50); Red Cell Distribution Width 15.9 % (11.0-16.0); White Blood Count 5.1 X10*3/uL (4.8-10.8)
[2023-07-24 10:05] LABS: Alanine Aminotransferase 38 U/L (0-31); Albumin Level 3.6 g/dL (3.5-5.0); Alkaline Phosphatase 106 U/L (39-117); Anion Gap 11 (12-20); Aspartate Amino Transferase 35 U/L (5-31); Bilirubin Total 0.5 mg/dL (0.0-1.0); Blood Urea Nitrogen 8 mg/dL (9-16); Calcium 9.3 mg/dL (8.4-10.2); Carbon Dioxide 29 mmol/L (22-29); Chloride 104 mmol/L (96-108); Creatinine Clr Calc Pharmacy 164.6; Estimated Glomerular Filt Rate > 60; Glucose Random 171 mg/dL (60-115); Potassium 4.1 mmol/L (3.3-5.1); Sodium 140 mmol/L (135-145); Total Protein 8.3 g/dL (6.5-8.0)
[2023-07-24 13:56] VITALS: BP 160/109; PULSE 99; RESP 16; TEMP 36.6; O2SAT 97
--- NOTE | 2023-07-24 14:03 | PC.NURSE ---
mariann noriega made aware bp remains elevated- no pain/distress. resting. no new orders
--- NOTE | 2023-07-24 15:02 | P.CONGS_ITS ---
History of Present Illness Consult details Consult date: 07/24/23 Reason for consult: other (breast abscess) Narrative: 28-year-old Panamanian-speaking female with a history of hypertension, diabetes, sleep apnea, presenting to the emergency department, accompanied by her mother, with complaints of right breast pain for 4 days. Patient reports that several years ago she had similar symptoms however this resolved without any antibiotics or intervention. She denies any fever, chills, nipple discharge, trauma to the area. Maternal aunt has hx of breast CA. She is not , post or breast-feeding. Breast US was performed which showed fluid collection within the right lower inner breast measuring approximately 2.5 x 1.9 x 0.7 approximately 2 cm deep to this scan with overlying skin thickening. Review of Systems 2 Constitutional: Constitutional: Denies chills, Denies fever(s) and Denies malaise ENT: Denies dizziness Cardiovascular: Cardiovascular: Denies chest pain and Denies dyspnea Respiratory: Respiratory: Denies dyspnea Gastrointestinal: Gastrointestinal: Denies abdominal pain, Denies nausea and Denies vomiting Integumentary/Breasts: Skin/Breast: Reports as per HPI Neurologic: Denies dizziness PMFSH Past Medical History Medical History Sleep apnea Hypertension Diabetes Family History Family History Maternal Aunt Breast cancer Maternal Uncle Cancer Surgical History Surgical History Hx of tonsillectomy Social History Social History Alcohol intake: current Alcohol intake frequency: a few times a month Patient Tobacco Use Status: Never used Tobacco Smoked in Last 30 Days: No Substance Use Type: Other Substance Use Type Other:: marijuana edibles Substance Use Frequency: Occasionally Advance Directives: No Advance Directives Information Provided: Yes Meds Allergies Allergy/AdvReac Type Severity Reaction Status Date / Time No Known Allergies Allergy Verified 07/24/23 08:21 Home Medications Medication Instructions Recorded Confirmed Last Taken Type acetaminophen 325 mg tablet 650 mg PO TID PRN mild pain 02/22/23 06/15/23 Unknown History albuterol sulfate 90 mcg/actuation 2 puff inhalation Q4H PRN wheezing 02/22/23 06/15/23 Unknown History aerosol inhaler (Ventolin HFA) ferrous sulfate 324 mg (65 mg 324 mg PO DAILY 02/22/23 06/15/23 06/14/23 History iron) tablet,delayed release fluticasone propionate 110 2 puff inhalation BID 02/22/23 06/15/23 Unknown History mcg/actuation HFA aerosol inhaler (Flovent HFA) metformin 500 mg tablet,extended 1,500 mg PO DAILY 02/22/23 06/15/23 06/14/23 History release 24 hr omeprazole 20 mg capsule,delayed 20 mg PO BID 02/22/23 06/15/23 06/15/23 History release amlodipine 10 mg tablet 10 mg PO DAILY 06/27/23 Unknown History Physical Exam 2 Vital Signs: Vital Signs: Last Vital Signs Temp 98 F 07/24/23 13:56 Pulse 99 07/24/23 13:56 Resp 16 07/24/23 13:56 BP 160/109 H 07/24/23 13:56 Pulse Ox 97 07/24/23 13:56 O2 Del Method Room Air 07/24/23 13:56 BMI result Body Mass Index 58.9 Const: General: comfortable, no acute distress and alert O rientation/consciousness: patient oriented x3 Chest: Other: right breast with large fluctuant area at 2-3 o clock with mild overlying skin changes and erythema, very tender to palpation Resp: Effort & Inspection: normal respiratory effort Skin: General skin exam: no rashes or lesions noted Neuro: General: patient oriented x3 and moves all extremities Results Labs 07/24/23 09:42 07/24/23 09:42 Labs: Abnormal lab results 07/24/23 Range/Units 09:42 Hgb 11.5 L (12.0-16.0) g/dl MCH 24.8 L (27.0-33.0) pg MCHC 30.0 L (31.0-35.0) g/dl Anion Gap 11 L (12-20) BUN 8 L (9-16) mg/dL Random Glucose 171 H (60-115) mg/dL AST 35 H (5-31) U/L ALT 38 H (0-31) U/L Total Protein 8.3 H (6.5-8.0) g/dL Short CBC 07/24/23 Range/Units 09:42 WBC 5.1 (4.8-10.8) X10*3/uL Hgb 11.5 L (12.0-16.0) g/dl Hct 38.3 (37.0-47.0) % Plt Count 232 (160-400) X10*3/uL BMP 07/24/23 09:42 Sodium 140 Potassium 4.1 Chloride 104 Carbon Dioxide 29 BUN 8 L Creatinine 0.83 Calcium 9.3 Liver Function 07/24/23 Range/Units 09:42 Total Bilirubin 0.5 (0.0-1.0) mg/dL AST 35 H (5-31) U/L ALT 38 H (0-31) U/L Alkaline Phosphatase 106 (39-117) U/L Albumin 3.6 (3.5-5.0) g/dL All other labs normal. Assessment and Plan (1) Abscess of right breast: Status: Acute Plan 28 year old female with right breast abscess. It was discussed to proceed with aspiration of right breast abscess at bedside and discharge on PO abx. She and her mother were in agreement. This was attempted at bedside (procedure note below) but was unsuccessful. Ultrasound guided drainage was therefore requested. She can follow up in the office in 1 week. The site of procedure was confirmed by the patient. After assuring informed consent, the skin was prepped with Betadine. The fluctuance was palpated and pulled off the chest wall and using an 18 gauge hypo the abscess was aspirated with small amount of purulence expressed. Further aspiration was attempted but no further drainage was collected. Decision was made to stop as the abscess may be deeper than the hypo and would be better drained with US guidance. A culture was obtained and sent with the expressed pus. The patient tolerated the procedure well. Further plan discussed with US guided drainage and she is in agreement. This has been ordered. Procedures Date of Service Date of Service: 07/25/23
[2023-07-24] MEDS: Lidocaine HCl 1 % MPF 5 ML VIAL SUBCUT (16:20)
[2023-07-24 16:59] VITALS: BP 160/106; PULSE 70; RESP 16; TEMP 36.6; O2SAT 97
== END 2023-07-24 16:59 | disposition home or self-care (01) ==
PROVIDERS: Physician Assistant Medical; Emergency Provider Emergency Medicine; PCP Internal Medicine
DX: N61.1 Abscess of the breast and nipple (principal); N64.4 Mastodynia; Z79.899 Other long term (current) drug therapy
CPT/HCPCS: 10005; 36415; 76642; 80053; 85025; 87070; 87077; 87147; 87186; 87205; 99284

== ENCOUNTER → 2023-07-24 08:33 | Outpatient (BNV) | payer OTHER, SELFPAY | PROVIDERS: Emergency Provider Emergency Medicine; PCP Internal Medicine; Visit Provider Physician Assistant Surgical | DX: N61.1 Abscess of the breast and nipple (principal) | CPT/HCPCS: 99284 ==

== ENCOUNTER → 2023-07-24 15:43 | Outpatient (BNV) | payer OTHER, SELFPAY | PROVIDERS: Emergency Provider Emergency Medicine; PCP Internal Medicine; Visit Provider Radiology Vascular & Interventional Radiology | DX: N63.14 Unspecified lump in the right breast, lower inner quadrant (principal) | CPT/HCPCS: 10005 ==

== ENCOUNTER 2023-08-06 12:53 | Outpatient (AMB) | payer OTHER, SELFPAY ==
--- NOTE | 2023-08-06 13:20 | MHC.OFFVIS ---
Intake Vital Signs 08/06/23 13:23 Height 5 ft 7 in Weight 378 lb 6 oz BMI 59.3 BP 172/99 H Blood Pressure Location Lt brachial Position Sitting Pulse 99 Intake Visit Reasons: ER f/u Right breast abscess Intake Note: Patient is seen in office for ER follow up visit, following right breast abscess. Pt c/o: was I&D at the ED with relief, did discharge at the time, currently looking better ER:07/24/23 (I&D) Editorial Writer Required: No Accompanied by: Other Relationship Allergies No Known Allergies Allergy (Verified 08/06/23 13:24) HPI HPI Comments History of Present Illness Details Patient presents with her mother. Status post ER aspiration of right breast abscess. Patient has had marked improvement of her symptoms. Her redness and pain have completely resolved. Chart was reviewed patient evaluate [facility] Medical History Sleep apnea Hypertension Diabetes Surgical History Hx of tonsillectomy Family History Maternal Aunt Breast cancer Maternal Uncle Cancer Social History Alcohol intake: current Alcohol intake frequency: a few times a month Patient Tobacco Use Status: Never used Tobacco Substance Use Type: Other Female Reproductive History Menstrual Age of Menarche: 8 Physical Exam Vital Signs: Last Vital Signs Pulse 99 08/06/23 13:23 BP 172/99 H 08/06/23 13:23 BMI result Body Mass Index 59.3 Chest Other: Mild induration of the lower inner quadrant right breast. No evidence of any fluctuance, erythema, or tenderness. Or to the patient, the redness has completely resolved. Assessment & Plan Assessment & Plan (1) Abscess of right breast: Code(s): N61.1 - Abscess of the breast and nipple Plan Current plan is for the patient to complete her antibiotic course, and will otherwise follow up p.r.n.. All questions answered. Coding Level of Care Code New Pt Level 4 (22088) Diagnoses Abscess of right breast N61.1
[2023-08-06 13:23] VITALS: BP 172/99; PULSE 99; BMI 59.3
== END 2023-08-06 13:43 | disposition home or self-care (01) ==
PROVIDERS: PCP Internal Medicine; Visit Provider Surgery
DX: N61.1 Abscess of the breast and nipple (principal)
CPT/HCPCS: 99204

== ENCOUNTER → 2023-08-06 12:53 | Outpatient (BNVA) | payer OTHER, SELFPAY | PROVIDERS: PCP Internal Medicine; Visit Provider Surgery | DX: N61.1 Abscess of the breast and nipple (principal) | CPT/HCPCS: 99202 ==

== ENCOUNTER 2023-09-24 09:38 | Outpatient (AMB) | payer OTHER, SELFPAY ==
--- NOTE | 2023-09-24 09:43 | A.OFFVIS_ITS ---
Intake Vital Signs 09/24/23 09:46 Height 5 ft 7 in Weight 372 lb BMI 58.3 BP 161/84 H Blood Pressure Location Rt radial Position Sitting Pulse 94 Intake Visit Reasons: Abscess back of neck Intake Note: Patient sheduled for abscess on post neck. Present for 5m. Patient c/o: on and off fluid build up. Accompanied by: Spouse Allergies No Known Allergies Allergy (Verified 09/24/23 09:48) HPI HPI Comments History of Present Illness Details Patient presents with her significant other. She has a longstanding history of a post the area neck sebaceous cyst which she has had many months time. Increasing in size becoming more symptomatic and occasionally discharges. She wished to have this excised. She had a right breast abscess several months ago which has completely resolved. Chart was reviewed and patient evaluated [facility] Medical History Sleep apnea Hypertension Diabetes Surgical History Hx of tonsillectomy Family History Maternal Aunt Breast cancer Maternal Uncle Cancer Social History Alcohol intake: current Alcohol intake frequency: a few times a month Patient Tobacco Use Status: Never used Tobacco Substance Use Type: Other Female Reproductive History Menstrual Age of Menarche: 8 Physical Exam Vital Signs: Last Vital Signs Pulse 94 09/24/23 09:46 BP 161/84 H 09/24/23 09:46 BMI result Body Mass Index 58.3 Const Other: Very pleasant, corpulent female. HEENT Other: Patient had a proximally 4 x 3 cm base of neck posterior mass consistent with a large sebaceous cyst. No acute infection at this time. Chest Other: Chest breath sounds bilaterally, HS 1 in 2 GI Other: Abdomen soft, corpulent, benign Assessment & Plan Assessment & Plan (1) Sebaceous cyst: Code(s): L72.3 - Sebaceous cyst Plan Because of the location of this along with the patient's size, I think the patient would be best served for wide local excision in an ambulatory surgical setting. Risks, benefits, alternatives of procedure reviewed the patient included but not limited to bleeding, infection, recurrence, numbness, pain, scarring, seroma formation, wound dehiscence and the patient wishes to proceed. All questions answered. Arrangements were made for this. Coding Level of Care Code New Pt Level 5 (96093) Diagnoses Sebaceous cyst L72.3
[2023-09-24 09:46] VITALS: BP 161/84; PULSE 94; BMI 58.3
== END 2023-09-24 09:57 | disposition home or self-care (01) ==
PROVIDERS: PCP Internal Medicine; Visit Provider Surgery
DX: L72.3 Sebaceous cyst (principal)
CPT/HCPCS: 99214

== ENCOUNTER → 2023-09-24 09:38 | Outpatient (BNVA) | payer OTHER, SELFPAY | PROVIDERS: PCP Internal Medicine; Visit Provider Surgery | DX: L72.3 Sebaceous cyst (principal) | CPT/HCPCS: 99212 ==

== ENCOUNTER 2023-09-27 11:09 | Outpatient (AMB) | payer OTHER, SELFPAY ==
--- NOTE | 2023-09-27 11:21 | MHC.OFFVIS ---
Intake Vital Signs 09/27/23 11:24 Height 5 ft 7 in Weight 370 lb 6.025 oz BMI 58.0 BP 110/80 Intake Visit Reasons: follow up medication Sous Chef Kitchen Manager Required: Yes Sous Chef Kitchen Manager Language: Chinese Instructor Name: Kika Abarca KYLE Information Interpreted: non-clinical & clinical Accompanied by: Self / Same As Patient Allergies No Known Allergies Allergy (Verified 09/27/23 11:26) HPI HPI Comments History of Present Illness Details Presenting for 3 months follow-up regarding Prometrium. The patient has been taken Prometrium 200 mg p.o. QD day 15-24 cyclicly, her menstrual cycles are regular and light PFSH Medical History Sleep apnea Hypertension Diabetes Surgical History Hx of tonsillectomy Family History Maternal Aunt Breast cancer Maternal Uncle Cancer Social History Alcohol intake: current Alcohol intake frequency: a few times a month Patient Tobacco Use Status: Never used Tobacco Substance Use Type: Other Female Reproductive History Menstrual Age of Menarche: 8 Review of Systems Const All systems reviewed & are unremarkable except as noted in HPI and below Reports as per HPI and Reports no additional complaints GI Reports no additional complaints Reports no additional complaints Physical Exam Vital Signs: Last Vital Signs BP 110/80 09/27/23 11:24 BMI result Body Mass Index 58.0 Assessment & Plan Assessment & Plan (1) Abnormal uterine bleeding (AUB): Comment: Hirsutism, diabetes and hypertension PCOS Code(s): N93.9 - Abnormal uterine and vaginal bleeding, unspecified Plan: Instructions given the patient to continue taking Prometrium 200 mg p.o. q.d. day 15-24 and to report any abnormal uterine bleeding. All questions answered, the patient verbalized understanding Medications: Refilled progesterone micronized (Prometrium) Take the pill 1 tablet a day cyclically every month from day 15-24 day 1 being the 1st day of next menstrual cycle 200 mg PO BEDTIME 30 caps 3RF 10 days Coding Level of Care Code Est Pt Level 3 (85950) Diagnoses Abnormal uterine bleeding (AUB) N93.9
[2023-09-27 11:24] VITALS: BP 110/80; BMI 58.0
== END 2023-09-27 12:22 | disposition home or self-care (01) ==
LOC: HO.HWS 11:10
PROVIDERS: PCP Internal Medicine; Visit Provider Obstetrics & Gynecology
DX: N93.9 Abnormal uterine and vaginal bleeding, unspecified (principal)
CPT/HCPCS: 99213

== ENCOUNTER → 2023-09-27 11:09 | Outpatient (BNVA) | payer OTHER, SELFPAY | PROVIDERS: PCP Internal Medicine; Visit Provider Obstetrics & Gynecology | DX: N93.9 Abnormal uterine and vaginal bleeding, unspecified (principal) | CPT/HCPCS: 99212 ==

== ENCOUNTER 2023-10-12 10:23 | Emergency (ER) | payer OTHER, SELFPAY ==
--- NOTE | ~2023-10-12 | CT_ITS ---
EXAMINATION: CT HEAD WITHOUT CONTRAST CLINICAL INFORMATION: No headache and vomiting COMPARISON: None available. TECHNIQUE: Contiguous axial imaging was performed from the skull base to vertex without intravenous administration of contrast. This CT examination was performed using dose optimization techniques as appropriate, variously including the following: *Automated exposure control *Adjustment of mA and/or kV according to patient size (this includes techniques or standardized protocols for targeted exams where dose is matched to indication/reason for exam; i.e. extremities or head) *Use of iterative reconstruction technique DLP: 817 mGy-cm FINDINGS: No acute intracranial hemorrhage or infarct. The blakely-white matter differentiation is preserved. No midline shift or hydrocephalus. No acute extra-axial fluid collections. The osseous structures are unremarkable. No orbital pathology. The paranasal sinuses and mastoid air cells are clear. CT/CT head/brain wo IV con IMPRESSION: No acute intracranial pathology.
[2023-10-12 10:24] VITALS: BP 163/110; PULSE 73; RESP 20; TEMP 37.1; O2SAT 99; BMI 56.4
[2023-10-12 10:53] LABS: MANUAL DIFF FLAG NO
[2023-10-12 10:56] LABS: Basophils Percent Auto 0.7 % (0-2); Eosinophils Percent Auto 0.7 % (0-4); Hematocrit 38.3 % (37.0-47.0); Hemoglobin 11.7 g/dl (12.0-16.0); Imm Gran Abs Auto 0.01 X10*3/uL (0.00-0.03); Imm Gran Pct Auto 0.2 % (0.0-0.4); Lymphocytes Absolute Auto 1.7 X10*3/uL (1.2-4.9); Lymphocytes Percent Auto 40.6 % (20-40); Mean Corpuscular HGB Conc 30.5 g/dl (31.0-35.0); Mean Corpuscular Hemoglobin 25.4 pg (27.0-33.0); Mean Corpuscular Volume 83.1 fL (80.0-98.0); Mean Platelet Volume 12.6 fL (9.4-12.3); Monocytes Absolute Auto 0.3 X10*3/uL (0.1-1.2); Monocytes Percent Auto 8.1 % (2-11); Neutrophils Absolute Auto 2.1 x10*3/uL (2.0-8.3); Neutrophils Percent Auto 49.7 % (45-73); Platelet Count 244 X10*3/uL (160-400); Red Blood Count 4.61 X10*6/uL (4.20-5.50); Red Cell Distribution Width 15.8 % (11.0-16.0); White Blood Count 4.2 X10*3/uL (4.8-10.8)
--- NOTE | 2023-10-12 10:58 | ED_ITS ---
HPI - General Adult General Chief complaint: General Medical Stated complaint: high BP Time Seen by Provider: 10/12/23 10:57 History of Present Illness HPI narrative: Patient complains of headache and nausea and vomiting which has been going on for 2 or 3 days and is similar to prior episodes, she says she associates it with failure to take her amlodipine 10 mg a day blood pressure med which she stopped taking as she ran out of it She denies any seizures she denies any weakness left or right side, she feels a new pain behind the left eye, but denies any change to vision and is seeing normally She denies chest pain she denies confusion she denies fever she denies shortness of breath she denies abdominal pain she denies any change to bowel or bladder Related Data Home Medications Medication Instructions Recorded Confirmed acetaminophen 325 mg tablet 650 mg PO TID PRN mild pain 02/22/23 08/06/23 albuterol sulfate 90 mcg/actuation 2 puff inhalation Q4H PRN wheezing 02/22/23 08/06/23 aerosol inhaler (Ventolin HFA) ferrous sulfate 324 mg (65 mg 324 mg PO DAILY 02/22/23 08/06/23 iron) tablet,delayed release fluticasone propionate 110 2 puff inhalation BID 02/22/23 08/06/23 mcg/actuation HFA aerosol inhaler (Flovent HFA) metformin 500 mg tablet,extended 1,500 mg PO DAILY 02/22/23 08/06/23 release 24 hr omeprazole 20 mg capsule,delayed 20 mg PO BID 02/22/23 08/06/23 release amlodipine 10 mg tablet 10 mg PO DAILY 06/27/23 08/06/23 Previous Rx's Medication Instructions Recorded progesterone micronized 200 mg 200 mg PO BEDTIME 10 days #30 caps 09/27/23 capsule (Prometrium) amlodipine 10 mg tablet 10 mg PO DAILY #30 tabs 10/12/23 Allergies Allergy/AdvReac Type Severity Reaction Status Date / Time No Known Allergies Allergy Verified 10/12/23 10:30 [facility] Past Medical History Source: nursing notes reviewed Medical History Sleep apnea Hypertension Diabetes Surgical History Hx of tonsillectomy Family History Family History Maternal Aunt Breast cancer Maternal Uncle Cancer Social History Social History Alcohol intake: current Alcohol intake frequency: a few times a month Patient Tobacco Use Status: Never used Tobacco Substance Use Type: Other Advance Directives: Yes Advance Directives Information Provided: Yes Advance Directives on File: No Physical Exam ED Vital Signs: Vital Signs - 24 hr 10/12/23 10:24 10/12/23 10:59 10/12/23 12:01 Temperature 98.8 F Pulse Rate 73 79 79 Respiratory Rate 20 18 Blood Pressure 163/110 H 184/110 H 148/101 H Pulse Oximetry 99 95 Oxygen Delivery Method Room Air Room Air 10/12/23 14:03 10/12/23 14:28 Temperature 97.5 F 97.5 F Pulse Rate 79 79 Respiratory Rate 18 18 Blood Pressure 137/87 137/87 Pulse Oximetry 95 Oxygen Delivery Method BMI result Body Mass Index 56.4 General appearance no acute distress Head is normocephalic atraumatic Pupils equal round reactive to light extraocular motions are intact, visual acuity is normal in both eyes including the left The pharynx is clear without redness swelling or exudate mucous membranes are moist voice is normal Neck is supple Chest clear to auscultation bilateral Heart no murmur Abdomen soft nontender Extremities no calf tenderness or swelling no edema Skin no rash Neuro gait and balance are normal, interaction comprehension and expression are normal, cranial nerves 2-12 intact as tested, cerebellar exam is normal, motor is 5/5 x4 and sensation is intact and symmetrical in extremities Course Course Course Narrative: Patient was initially given Norvasc Zofran and acetaminophen and re-evaluated half an hour later and was now vomiting and said her headache was a little worse so she was scanned The CT scan was negative and normal Lab evaluation including CBC and chemistry was normal Patient was given a 2nd dose of Zofran and her nausea fully resolved and she was eating laughing with her friends her headache was completely gone and she was very improved and her blood pressure after neurovascular was 137/87 Well-appearing patient is discharge diagnosis hypertension and headache Medications Administered Discontinued Medications Generic Name Dose Route Start Last Admin Trade Name Freq PRN Reason Stop Dose Admin Acetaminophen 975 mg 10/12/23 11:24 10/12/23 12:05 Acetaminophen 325 Mg Tablet PO 10/12/23 11:25 975 mg ONCE ONE Administration Amlodipine Besylate 10 mg 10/12/23 11:24 10/12/23 11:33 Amlodipine Besylate 10 Mg Tablet PO 10/12/23 11:25 10 mg ONCE ONE Administration Protocol Ondansetron HCl 4 mg 10/12/23 11:24 10/12/23 11:32 Ondansetron Odt 4 Mg Tab.Rapdis TRANSLINGU 10/12/23 11:25 4 mg ONCE ONE Administration Ondansetron HCl 4 mg 10/12/23 12:28 10/12/23 12:31 Ondansetron Odt 4 Mg Tab.Rapdis TRANSLINGU 10/12/23 12:29 4 mg ONCE ONE Administration Medical Decision Making Lab Data [facility] Lab Attestation statement: I reviewed the patient's lab results. 10/12/23 10:42 10/12/23 10:42 Labs: Lab Results 10/12/23 Range/Units 10:42 WBC 4.2 L (4.8-10.8) X10*3/uL RBC 4.61 (4.20-5.50) X10*6/uL Hgb 11.7 L (12.0-16.0) g/dl Hct 38.3 (37.0-47.0) % MCV 83.1 (80.0-98.0) fL MCH 25.4 L (27.0-33.0) pg MCHC 30.5 L (31.0-35.0) g/dl RDW 15.8 (11.0-16.0) % Plt Count 244 (160-400) X10*3/uL MPV 12.6 H (9.4-12.3) fL Immature Gran % (Auto) 0.2 (0.0-0.4) % Neut % (Auto) 49.7 (45-73) % Lymph % (Auto) 40.6 H (20-40) % [place] % (Auto) 8.1 (2-11) % Eos % (Auto) 0.7 (0-4) % Baso % (Auto) 0.7 (0-2) % Lymph # (Auto) 1.7 (1.2-4.9) X10*3/uL [place] # (Auto) 0.3 (0.1-1.2) X10*3/uL Eos # (Auto) 0.0 (0.0-0.4) X10*3/uL Baso # (Auto) 0.0 (0.0-0.2) X10*3/uL Abs Immat Gran (auto) 0.01 (0.00-0.03) X10*3/uL Absolute Neuts (auto) 2.1 (2.0-8.3) x10*3/uL Absolute Nucleated RBC 0.000 (0.0-0.012) X10*3/uL Nucleated RBC % (auto) 0.0 (0.0-0.2) /100WBC Sodium 139 (135-145) mmol/L Potassium 4.1 (3.3-5.1) mmol/L Chloride 104 (96-108) mmol/L Carbon Dioxide 26 (22-29) mmol/L Anion Gap 13 (12-20) BUN 11 (9-16) mg/dL Creatinine 0.81 (0.5-1.4) mg/dL Estim Creat Clear Calc 164.0 Estimated GFR > 60 Random Glucose 153 H (60-115) mg/dL Calcium 9.5 (8.4-10.2) mg/dL Total Bilirubin 0.7 (0.0-1.0) mg/dL AST 26 (5-31) U/L ALT 25 (0-31) U/L Alkaline Phosphatase 111 (39-117) U/L Troponin I High Sens < 2.7 (<3.5-17.0) ng/L Total Protein 7.9 (6.5-8.0) g/dL Albumin 3.7 (3.5-5.0) g/dL Influenza Type A (PCR) NEGATIVE (Negative) Influenza Type B (PCR) NEGATIVE (Negative) RSV RNA Qual (PCR) NEGATIVE (Negative) SARS-CoV-2 RNA (RT-PCR) NEGATIVE (Negative) Discharge Plan Discharge Clinical Impression: Hypertension, Headache Patient Disposition: Home, Self-Care Additional Instructions: Head CT was normal Labs were normal Testing for COVID and flu was normal I called in your prescription for Norvasc Return any time any worse condition or any concerns Try to take her blood pressure medicine every day Prescriptions: New amlodipine 10 mg tablet 10 mg PO DAILY Qty: 30 0RF No Action metformin 500 mg tablet extended release 24 hr 1,500 mg PO DAILY ferrous sulfate 324 mg (65 mg iron) tablet,delayed release (DR/EC) 324 mg PO DAILY omeprazole 20 mg capsule,delayed release(DR/EC) 20 mg PO BID acetaminophen 325 mg tablet 650 mg PO TID PRN (Reason: mild pain) fluticasone propionate [Flovent HFA] 110 mcg/actuation HFA aerosol inhaler 2 puff inhalation BID albuterol sulfate [Ventolin HFA] 90 mcg/actuation HFA aerosol inhaler 2 puff inhalation Q4H PRN (Reason: wheezing) amlodipine 10 mg tablet 10 mg PO DAILY progesterone micronized [Prometrium] 200 mg capsule 200 mg PO BEDTIME 10 Days Qty: 30 3RF Rx Instructions: Take the pill 1 tablet a day cyclically every month from day 15-24 day 1 being the 1st day of next menstrual cycle Interventions: ED Discharge Assessment Last Done: 10/12/23 14:28
[2023-10-12 10:59] VITALS: BP 184/110; PULSE 79
[2023-10-12 11:18] LABS: Alanine Aminotransferase 25 U/L (0-31); Albumin Level 3.7 g/dL (3.5-5.0); Alkaline Phosphatase 111 U/L (39-117); Anion Gap 13 (12-20); Aspartate Amino Transferase 26 U/L (5-31); Bilirubin Total 0.7 mg/dL (0.0-1.0); Blood Urea Nitrogen 11 mg/dL (9-16); Calcium 9.5 mg/dL (8.4-10.2); Carbon Dioxide 26 mmol/L (22-29); Chloride 104 mmol/L (96-108); Estimated Glomerular Filt Rate > 60; Glucose Random 153 mg/dL (60-115); Potassium 4.1 mmol/L (3.3-5.1); Sodium 139 mmol/L (135-145); Total Protein 7.9 g/dL (6.5-8.0)
[2023-10-12 11:25] LABS: Troponin-I High Sensitivity < 2.7 ng/L (<3.5-17.0)
[2023-10-12] MEDS: Ondansetron ODT 4 MG TAB.RAPDIS TRANSLINGU ×2 (11:32→12:31)
[2023-10-12] MEDS: amLODIPine Besylate 10 MG TABLET PO (11:33)
[2023-10-12 11:38] LABS: Influenza A PCR NEGATIVE (Negative); Influenza B PCR NEGATIVE (Negative); Resp Syncy Virus RNA Qual PCR NEGATIVE (Negative); SARS COV2 PCR INHOUSE NEGATIVE (Negative)
--- NOTE | 2023-10-12 11:44 | PC.NURSE ---
prior to administration of zofran and amlodippine, pt projectile vomitted approx 400ml of emesis, no blood noted. pt to have CT scan
[2023-10-12 12:01] VITALS: BP 148/101; PULSE 79; RESP 18; O2SAT 95
[2023-10-12] MEDS: Acetaminophen 325 MG TABLET 975 MG PO (12:05)
[2023-10-12 14:03] VITALS: BP 137/87; PULSE 79; RESP 18; TEMP 36.4; O2SAT 95
[2023-10-12 14:28] VITALS: BP 137/87; PULSE 79; RESP 18; TEMP 36.4
== END 2023-10-12 14:59 | disposition home or self-care (01) ==
PROVIDERS: Emergency Provider Emergency Medicine Emergency Medical Services; PCP Internal Medicine
DX: I10 Essential (primary) hypertension (principal); R51.9 Headache, unspecified; E11.9 Type 2 diabetes mellitus without complications; Z91.148 Patient's other noncompliance with medication regimen for other reason; Z11.52 Encounter for screening for COVID-19; Z20.828 Contact with and (suspected) exposure to other viral communicable diseases
CPT/HCPCS: 0241U; 36415; 70450; 80053; 84484; 85025; 99284

== ENCOUNTER 2023-10-18 08:42 | Day surgery (SDC) | payer OTHER, SELFPAY ==
[2023-10-16 09:23] VITALS: BMI 58.3
--- NOTE | 2023-10-17 10:22 | P.CONAN_ITS ---
Documented by User: Eugenia Perez NP 10/17/23 10:25 HPI - Anesthesia Eval Consult details Narrative: 28yo F for Wide Local Excision post neck large sebaceous Cyst s/p D&C hyst 05/2023 with GA-ETT 7 PMFSH Active Problems Active Problems: All Active Problems (Updated 10/12/23 @ 14:23 by STAR Raymundo) Headache (Acute) Hypertension (Acute) Sebaceous cyst (Acute) Abscess of right breast (Acute) Abnormal uterine bleeding (AUB) (Acute) Past Medical History Medical History Sleep apnea Hypertension Diabetes Family History Family History Maternal Aunt Breast cancer Maternal Uncle Cancer Family history of problems with anesthesia: No Surgical History Surgical History Hx of tonsillectomy History of Problems with Anesthesia: No Social History Social History Alcohol intake: current Alcohol intake frequency: a few times a month Patient Tobacco Use Status: Current someday Tobacco user Use of substances other than those prescribed or required for medical reasons: No Substance Use Type: Other Are you DNR?: No Advance Directives: No Advance Directives Information Provided: Yes Meds Allergies Allergy/AdvReac Type Severity Reaction Status Date / Time No Known Allergies Allergy Verified 10/12/23 10:30 Home Medications Medication Instructions Recorded Confirmed Last Taken Type acetaminophen 325 mg tablet 650 mg PO TID PRN mild pain 02/22/23 08/06/23 Unknown History albuterol sulfate 90 mcg/actuation 2 puff inhalation Q4H PRN wheezing 02/22/23 08/06/23 Unknown History aerosol inhaler (Ventolin HFA) ferrous sulfate 324 mg (65 mg 324 mg PO DAILY 02/22/23 08/06/23 06/14/23 History iron) tablet,delayed release fluticasone propionate 110 2 puff inhalation BID 02/22/23 08/06/23 Unknown History mcg/actuation HFA aerosol inhaler (Flovent HFA) metformin 500 mg tablet,extended 1,500 mg PO DAILY 02/22/23 08/06/2306/14/23 History release 24 hr omeprazole 20 mg capsule,delayed 20 mg PO BID 02/22/23 10/18/23 10/18/23 History release amlodipine 10 mg tablet 10 mg PO DAILY 06/27/23 08/06/23 Unknown History Exam Height,Weight and Vital Signs: Height 5 ft 7 in Weight 168.736 kg Pertinent Lab Results Pertinent Lab Results: Laboratory Tests 10/12/23 10:42 WBC 4.2 L Hgb 11.7 L Hct 38.3 Plt Count 244 Sodium 139 Potassium 4.1 Chloride 104 Carbon Dioxide 26 BUN 11 Creatinine 0.81 Assessment and Plan Assessment Anesthesia Assessment: Chart Reviewed Final Anesthetic Review Family History of Problems with Anesthesia: No History of Problems with Anesthesia: No Documented by User: Ruth Bray MD 10/18/23 11:54 [facility] Past Medical History Medical History Sleep apnea Hypertension Diabetes Family History Family History Maternal Aunt Breast cancer Maternal Uncle Cancer Surgical History Surgical History Hx of tonsillectomy Social History Social History Alcohol intake: current Alcohol intake frequency: a few times a month Patient Tobacco Use Status: Current someday Tobacco user Use of substances other than those prescribed or required for medical reasons: No Substance Use Type: Other Are you DNR?: No Advance Directives: No Advance Directives Information Provided: Yes Meds Allergies Allergy/AdvReac Type Severity Reaction Status Date / Time No Known Allergies Allergy Verified 10/12/23 10:30 Home Medications Medication Instructions Recorded Confirmed Last Taken Type acetaminophen 325 mg tablet 650 mg PO TID PRN mild pain 02/22/23 08/06/23 Unknown History albuterol sulfate 90 mcg/actuation 2 puff inhalation Q4H PRN wheezing 02/22/23 08/06/23 Unknown History aerosol inhaler (Ventolin HFA) ferrous sulfate 324 mg (65 mg 324 mg PO DAILY 02/22/23 08/06/23 06/14/23 History iron) tablet,delayed release fluticasone propionate 110 2 puff inhalation BID 02/22/23 08/06/23 Unknown History mcg/actuation HFA aerosol inhaler (Flovent HFA) metformin 500 mg tablet,extended 1,500 mg PO DAILY 02/22/23 08/06/23 06/14/23 History release 24 hr omeprazole 20 mg capsule,delayed 20 mg PO BID 02/22/23 10/18/23 10/18/23 History release amlodipine 10 mg tablet 10 mg PO DAILY 06/27/23 08/06/23 Unknown History Exam Airway Mallampati Class: III (thick neck) TM Dist: >3cm Neck ROM: Full Heart: rrr Lungs: cta Assessment and Plan Assessment Anesthesia Assessment: Anesthesia Plan Discussed Final Anesthetic Review NPO: Yes ASA Class: III Final Preanesthetic Review: No Changes in Pt Med Stat, Meds/Allgs Chart Reviewed and Consent Obtained/Reviewed Patient Risk: Intermediate Procedure Risk: Low Anesthetic Plan Anesthetic Plan: MAC: Disposition: Standard PACU
--- NOTE | 2023-10-17 13:43 | MHC.SHP ---
Pre-Procedural Eval Section A - 24 Hr Update-Section A only Date of Service: 10/17/23 The patient is an INPATIENT: No Changes since office visit: No Cold of Flu in the past 2 weeks, No New Medical Problems, No Changes in Medication and No Patient answered all questions Section B - Complete if H&P > 30 days Chief Complaint: Sebaceous cyst Allergies: Allergies Allergy/AdvReac Type Severity Reaction Status Date / Time No Known Allergies Allergy Verified 10/12/23 10:30 Plan I have reviewed the history and physical and performed a pertinent physical examination on my patient. No changes have occurred unless specified. Time Spent With Patient Time: Total time managing care of this patient today ____ minutes.
[2023-10-18 10:37] VITALS: BMI 58.6
[2023-10-18 10:55] VITALS: BP 129/86; PULSE 87; RESP 16; TEMP 36.4; O2SAT 96
[2023-10-18 10:58] LABS: UPreg QC Valid YES; Urine Pregnancy NEGATIVE (NEGATIVE)
[2023-10-18] MEDS: Lactated Ringers 1,000 ML 100 ML IVCONT (11:31)
[2023-10-18 11:38] LABS: Glucose, Whole Blood 81 mg/dL (60-115)
--- NOTE | 2023-10-18 13:02 | W.PM.OPN ---
Operative Note Operative Note Date of Service: 10/18/23 Narrative: Preoperative diagnosis: [] Large symptomatic sebaceous cyst posterior neck Postop diagnosis: [] Same Procedure [] wide local excision sebaceous cyst posterior neck Surgeon: [] Efra Cup Trimming Machine Operator: [] Juan Type of Anesthesia: [] MAC Indication for surgery: [] 4 x 3 cm sebaceous cyst the posterior lower neck. Very corpulent patient. Findings: [] Patient brought to the operating room, placed on operative table supine position, after adequate level of MAC anesthesia was induced, proposed incisional site was infiltrated with 0.5% Marcaine/1% lidocaine after the patient was placed in the right lateral decubitus position. An after the posterior neck was prepped draped in usual sterile fashion. Using a transverse by elliptical incision with dimensions as described above, this carried down through skin, subcutaneous tissue, and under mining of cyst which was sent to pathology for evaluation. The wound Was irrigated, secured hemostasis, and closed using interrupted inverted dermal 3-0 Vicryl sutures followed by Steri-Strips and sterile dressings. Sponge, needle, and instrument counts were reported correct. Patient tolerated the procedure well and emerged from anesthesia stable condition. EBL minimal
[2023-10-18 13:05] VITALS: BP 155/96; PULSE 95; RESP 16; TEMP 36.9; O2SAT 96
[2023-10-18 13:20] VITALS: BP 131/86; PULSE 85; RESP 18; O2SAT 99
[2023-10-18 13:35] VITALS: BP 131/76; RESP 18; O2SAT 99
[2023-10-18] MEDS: oxyCODONE HCl Immed Release 5 MG TABLET PO (13:41)
[2023-10-18 13:50] VITALS: BP 135/91; PULSE 87; RESP 18; TEMP 36.9; O2SAT 99
== END 2023-10-18 14:12 | disposition home or self-care (01) ==
PROVIDERS: Nurse Practitioner; PCP Internal Medicine; Visit Provider Surgery
PROC: (CPT 11424; principal; 2023-10-18 11:00)
DX: L72.3 Sebaceous cyst (principal); I10 Essential (primary) hypertension; E11.9 Type 2 diabetes mellitus without complications; G47.30 Sleep apnea, unspecified; E66.8 Other obesity; Z68.43 Body mass index [BMI] 50.0-59.9, adult; Z79.51 Long term (current) use of inhaled steroids; Z79.84 Long term (current) use of oral hypoglycemic drugs; Z79.899 Other long term (current) drug therapy; Z72.0 Tobacco use
CPT/HCPCS: 11424; 81025; 82947; 88304; J0690; J2250; J2704; J2795; J3010

== ENCOUNTER → 2023-10-18 08:42 | Outpatient (BNV) | payer OTHER, SELFPAY | PROVIDERS: PCP Internal Medicine; Visit Provider Surgery | DX: L72.0 Epidermal cyst (principal) | CPT/HCPCS: 11426 ==

== ENCOUNTER 2023-10-24 13:18 | Outpatient (AMB) | payer OTHER, SELFPAY ==
[2023-10-24 13:30] VITALS: BP 173/89; PULSE 93
--- NOTE | 2023-10-24 13:30 | A.OFFVIS_ITS ---
Intake Vital Signs 10/24/23 13:30 Weight 368 lb BP 173/89 H Blood Pressure Location Rt radial Position Sitting Pulse 93 Intake Visit Reasons: S/P WLE post neck Lg sebaceous cyst Intake Note: Patient scheduled as urgent appointment. Had WLE on post neck 6d ago. Patient c/o: bleeding on gauze. EXC date: 10-18-23. Hearing Officer Required: No Accompanied by: Mother Allergies No Known Allergies Allergy (Verified 10/24/23 13:31) HPI HPI Comments History of Present Illness Details Patient presents with family member for follow-up. She had some drainage from the incision site. She saw me a picture and this was just a seroma. The incision is at the nape of the neck so this is not unexpected. Patient was reassured. Pathology is benign [facility] Medical History Sleep apnea Hypertension Diabetes Surgical History Hx of tonsillectomy Family History Maternal Aunt Breast cancer Maternal Uncle Cancer Social History Alcohol intake: current Alcohol intake frequency: a few times a month Comment: COUNTS CORRECT Patient Tobacco Use Status: Current someday Tobacco user Substance Use Type: Other Female Reproductive History Menstrual Age of Menarche: 8 Physical Exam Vital Signs: Last Vital Signs Pulse 93 10/24/23 13:30 BP 173/89 H 10/24/23 13:30 Neck Other: Incision clean dry and intact healing very well Assessment & Plan Assessment & Plan (1) Postop check: Code(s): Z09 - Encounter for follow-up examination after completed treatment for conditions other than malignant neoplasm Plan Patient and family member have been given local instructions, and they will follow-up p.r.n.. All questions answered. Coding Level of Care Code Global (67969) Diagnoses Postop check Z09
== END 2023-10-24 13:39 | disposition home or self-care (01) ==
PROVIDERS: PCP Internal Medicine; Visit Provider Surgery
DX: Z09 Encounter for follow-up examination after completed treatment for conditions other than malignant neoplasm (principal)
CPT/HCPCS: 99024

== ENCOUNTER → 2023-10-24 13:18 | Outpatient (BNVA) | payer OTHER, SELFPAY | PROVIDERS: PCP Internal Medicine; Visit Provider Surgery | DX: Z09 Encounter for follow-up examination after completed treatment for conditions other than malignant neoplasm (principal); L76.34 Postprocedural seroma of skin and subcutaneous tissue following other procedure | CPT/HCPCS: 99212 ==

== ENCOUNTER 2023-10-30 10:49 | Outpatient (AMB) | payer OTHER, SELFPAY ==
[2023-10-30 11:01] VITALS: BP 167/99; PULSE 97
--- NOTE | 2023-10-30 11:01 | A.OFFVIS_ITS ---
Intake Vital Signs 10/30/23 11:01 Weight 365 lb BP 167/99 H Blood Pressure Location Rt brachial Position Sitting Pulse 97 Intake Visit Reasons: wound check ,redness/pus Lg neck cyst exc Intake Note: Patient called to be seen today. C/o tenderness along incision on post neck. Pt's mother worries as there is yellowish discharge. 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 There was some clear drainage from the incision and they present here for further evaluation. PFSH Medical History Sleep apnea Hypertension Diabetes Surgical History Hx of surgical procedure (10/18/23) Hx of tonsillectomy Family History Maternal Aunt Breast cancer Maternal Uncle Cancer Social History Alcohol intake: current Alcohol intake frequency: a few times a month Comment: COUNTS CORRECT Patient Tobacco Use Status: Current someday Tobacco user Substance Use Type: Other Female Reproductive History Menstrual Age of Menarche: 8 Physical Exam Vital Signs: Last Vital Signs Pulse 97 10/30/23 11:01 BP 167/99 H 10/30/23 11:01 Neck Other: Patient has some mild separation of the central part of the incision but no evidence of any infection. Assessment & Plan Assessment & Plan (1) Postop check: Code(s): Z09 - Encounter for follow-up examination after completed treatment for conditions other than malignant neoplasm Plan Patient and mother were reassured. They have been given local wound care instructions. Because of the area of the neck, any movement will partially separate the incision coupled with the patient's marked corpulent, but they were reassured that there is no infection and no other issues at this time. All questions answered. They will follow-up p.r.n.. Coding Level of Care Code Global (11955) Diagnoses Postop check Z09
== END 2023-10-30 11:09 | disposition home or self-care (01) ==
PROVIDERS: PCP Internal Medicine; Visit Provider Surgery
DX: Z09 Encounter for follow-up examination after completed treatment for conditions other than malignant neoplasm (principal)
CPT/HCPCS: 99024

== ENCOUNTER → 2023-10-30 10:49 | Outpatient (BNVA) | payer OTHER, SELFPAY | PROVIDERS: PCP Internal Medicine; Visit Provider Surgery | DX: Z09 Encounter for follow-up examination after completed treatment for conditions other than malignant neoplasm (principal); Z98.890 Other specified postprocedural states | CPT/HCPCS: 99212 ==

== ENCOUNTER 2024-06-09 11:04 | Outpatient (AMB) | payer OTHER, SELFPAY ==
--- NOTE | 2024-06-09 11:18 | A.OFFVIS_ITS ---
Vital Signs 06/09/24 11:19 Height 5 ft 7 in Weight 345 lb BMI 54.0 BP 132/84 Intake Visit Reasons: annual/DO NOT RS Instrument And Electrical Technician Required: Yes Instrument And Electrical Technician Language: Esol Instructor Services: Instrument And Electrical Technician Present (in person) Instrument And Electrical Technician Name: Kika WRIGHT Information Interpreted: non-clinical & clinical Post Secondary Professional: Post Secondary Professional Present (Kika WRIGHT) Accompanied by: Self / Same As Patient Allergies No Known Allergies Allergy (Verified 06/09/24 11:20) HPI Comments Details: Presenting for annual exam. No complaints. Last Pap/HPV was negative in 2022 [facility] Medical History Sleep apnea Hypertension Diabetes Surgical History Hx of surgical procedure (10/18/23) Hx of tonsillectomy Family History Maternal Aunt Breast cancer Maternal Uncle Cancer Social History Alcohol intake: current Alcohol intake frequency: a few times a month Comment: COUNTS CORRECT Patient Tobacco Use Status: Current someday Tobacco user Substance Use Type: Other Female Reproductive History Menstrual Age of Menarche: 8 Total pregnancies: 0 Date of last pap smear: 02/27/23 Review of Systems Const All systems reviewed & are unremarkable except as noted in HPI and below Card Reports as per HPI Resp Reports as per HPI GI Reports as per HPI and Reports no additional complaints Reports as per HPI Physical Exam Vital Signs: Last Vital Signs BP 132/84 06/09/24 11:19 BMI result Body Mass Index 54.0 Const General: cooperative, healthy appearing and comfortable Chest Chest palpation & inspection: normal inspection of the chest and normal palpation of entire chest wall Breast/axilla inspection: normal inspection of the breasts and normal inspection of the axillae Breast/axilla palpation: normal palpation of the breasts, normal palpation of the axillae and no axillary lymphadenopathy Resp Effort & Inspection: normal respiratory effort Auscultation: clear to auscultation bilaterally Percussion: percussion normal Cardio Palpation: normal PMI Rate: regular rate Rhythm: regular rhythm Heart sounds: no murmurs and no rubs Peripheral pulses: Peripheral pulses 2+ throughout GI Inspection: Yes normal to inspection Palpation (GI): Soft to palpation, nontender, no guarding, not rigid and No hepatosplenomegaly present Percussion: Yes normal to percussion Auscultation: normal bowel sounds Rectal Exam - Female: deferred General: Yes bladder normal to palpation External Female Exam: No lesion Speculum Exam - Vagina: normal appearance of the vagina, normal palpation, normal vaginal discharge and not erythematous Speculum Exam - Cervix: normal appearance of the cervix and normal palpation Bimanual exam- vagina & uterus: normal bimanual exam, normal palpation, uterine size normal, bladder normal to palpation, consistency normal and normal palpation Bimanual Exam- Adnexa, other: normal adnexae, no masses and no tenderness Assessment & Plan Assessment & Plan (1) Well woman exam: Code(s): Z01.419 - Encounter for gynecological examination (general) (routine) without abnormal findings Category: Medical Plan: Cotesting not indicated this year. Counseled the patient about the recommended dietary allowance of 1000 mg of Calcium & 600 IU of vitamin D. The patient was instructed to perform monthly self-breast exams and to schedule an annual exam in a year; All questions answered and the patient verbalized understanding. Instructed the patient to schedule annual exam in a year Coding Level of Care Code Est Pt Prev Care 18-39y(37633) Diagnoses Well woman exam Z01.419
[2024-06-09 11:19] VITALS: BP 132/84; BMI 54.0
== END 2024-06-09 11:42 | disposition home or self-care (01) ==
PROVIDERS: PCP Internal Medicine; Visit Provider Obstetrics & Gynecology
DX: Z01.419 Encounter for gynecological examination (general) (routine) without abnormal findings (principal)
CPT/HCPCS: 99395

== ENCOUNTER → 2024-06-09 11:04 | Outpatient (BNVA) | payer OTHER, SELFPAY | PROVIDERS: PCP Internal Medicine; Visit Provider Obstetrics & Gynecology | DX: Z01.419 Encounter for gynecological examination (general) (routine) without abnormal findings (principal) | CPT/HCPCS: 99395 ==

== ENCOUNTER 2024-06-18 08:08 | Outpatient (REF) | payer OTHER, SELFPAY ==
[2024-06-19 07:36] LABS: CT PCR NOT DETECTED (Not Detect.); NG PCR NOT DETECTED (Not Detect.)
[2024-06-19 11:42] LABS: Bacterial Vaginosis PCR NEGATIVE (Negative); Candida Group PCR DETECTED (Not Detect); Candida glab krusei PCR NOT DETECTED (Not Detect); Trichomonas vaginalis PCR NOT DETECTED (Not Detect)
== END 2024-06-18 08:09 | disposition home or self-care (01) ==
LOC: HO.LNP 08:08
PROVIDERS: PCP Internal Medicine; Visit Provider Obstetrics & Gynecology
DX: N76.0 Acute vaginitis (principal)
CPT/HCPCS: 0352U; 87491; 87591; 99212; 99459

== ENCOUNTER 2024-06-18 08:08 | Outpatient (AMB) | payer OTHER, SELFPAY ==
[2024-06-18 08:24] VITALS: BP 132/84
--- NOTE | 2024-06-18 08:24 | MHC.OFFVIS ---
Vital Signs 06/18/24 08:24 Weight 345 lb BP 132/84 Intake Visit Reasons: vaginal itching Rn Pain Management Required: Yes Rn Pain Management Language: Transportation Operations Manager Services: Rn Pain Management Present (in person) Rn Pain Management Name: Kika Abarca Information Interpreted: non-clinical & clinical Obstetrics Gynecology Physician: Obstetrics Gynecology Physician Present ([place]/ Kika KYLE Abarca) Accompanied by: Self / Same As Patient Allergies No Known Allergies Allergy (Verified 06/09/24 11:20) HPI Comments Details: Presenting complaining of vulvovaginal itching a few days' duration with no associated vaginal discharge or vaginal odor [facility] Medical History Sleep apnea Hypertension Diabetes Surgical History Hx of surgical procedure (10/18/23) Hx of tonsillectomy Family History Maternal Aunt Breast cancer Maternal Uncle Cancer Social History Alcohol intake: current Alcohol intake frequency: a few times a month Comment: COUNTS CORRECT Patient Tobacco Use Status: Current someday Tobacco user Substance Use Type: Other Female Reproductive History Menstrual Age of Menarche: 8 Review of Systems Const All systems reviewed & are unremarkable except as noted in HPI and below Physical Exam Vital Signs: Last Vital Signs BP 132/84 06/18/24 08:24 General: Yes no CVA tenderness External Female Exam: normal external appearance and normal appearance of the urethra Speculum Exam - Vagina: normal appearance of the vagina, normal palpation, no lesions and no masses Speculum Exam - Cervix: normal appearance of the cervix, normal palpation, no lesions, no masses and nontender Bimanual exam- vagina & uterus: normal bimanual exam, normal palpation, uterine size normal, normal palpation, uterine shape normal, No Cervical tenderness present and non-tender Bimanual Exam- Adnexa, other: normal adnexae Back/Spine/Pelvis Back: no CVA tenderness Assessment & Plan Assessment & Plan (1) Vulvovaginitis: Code(s): N76.0 - Acute vaginitis Category: Medical Plan: GC/CT, Bacterial Vaginosis panel taken, Terazol 0.8% q.h.s. for 3 days was sent to the patient's pharmacy. The patient was instructed to call if symptoms don't improve in 48 hours. Medications: New terconazole 0.8% 1 appful vaginal BEDTIME 3 days 20 grams 0RF Coding Level of Care Code Est Pt Level 3 (55718) Diagnoses Vulvovaginitis N76.0
== END 2024-06-18 10:03 | disposition home or self-care (01) ==
LOC: HO.HWS 08:08
PROVIDERS: PCP Internal Medicine; Visit Provider Obstetrics & Gynecology
DX: N76.0 Acute vaginitis (principal)
CPT/HCPCS: 99213

== ENCOUNTER 2025-04-02 10:32 | Emergency (ER) | payer OTHER, SELFPAY ==
[2025-04-02 10:57] VITALS: BP 152/105; PULSE 72; RESP 20; TEMP 37.2; O2SAT 99; BMI 50.9
--- NOTE | 2025-04-02 11:03 | ED.GENADULT ---
HPI - General Adult General Chief complaint: Skin/Abscess/Foreign Body Stated complaint: abscess Time Seen by Provider: 04/02/25 15:42 Source: patient, old records reviewed and retail seasonal specialist (mom wants to interpret tristen Kapoor in room) Mode of arrival: ambulatory Limitations: no limitations History of Present Illness ED Provider: TITO HPI narrative: 30 yo female PMH of HTN / DM here with c/o 2 weeks of boil on her L buttock that opened 2 days ago and has been draining. She has no hx of MRSA but does have hx of boils. She notes no fevers, no n/v/d. She took 2 doses of mom's old cephalexin. Her has been squeezing it. She is worried as she needs her own abx MD complaint: boil Onset (ago): week(s) (2) Location: buttocks Radiation: non-radiation Severity: moderate Quality: aching Pain Consistency: intermittent Relieving factors: none Exacerbating factors: movement Associated symptoms: denies other symptoms Treatments prior to arrival: other Related Data Home Medications ?Medication ?Instructions ?Recorded ?Confirmed acetaminophen 325 mg tablet 650 mg PO TID PRN mild pain 02/22/23 08/06/23 albuterol sulfate 90 mcg/actuation 2 puff inhalation Q4H PRN wheezing 02/22/23 08/06/23 aerosol inhaler (Ventolin HFA) ferrous sulfate 324 mg (65 mg 324 mg PO DAILY 02/22/23 08/06/23 iron) tablet,delayed release fluticasone propionate 110 2 puff inhalation BID 02/22/23 08/06/23 mcg/actuation HFA aerosol inhaler (Flovent HFA) metformin 500 mg tablet,extended 1,500 mg PO DAILY 02/22/23 08/06/23 release 24 hr omeprazole 20 mg capsule,delayed 20 mg PO BID 02/22/23 10/18/23 release Previous Rx's ?Medication ?Instructions ?Recorded amlodipine 10 mg tablet 10 mg PO DAILY #30 tabs 10/12/23 ibuprofen 800 mg tablet 800 mg PO Q8H PRN pain #30 tabs 10/18/23 progesterone micronized 200 mg 200 mg PO BEDTIME 10 days #30 caps 06/18/24 capsule (Prometrium) terconazole 0.8 % vaginal cream 1 appful vaginal BEDTIME 3 days 06/18/24 #20 grams cephalexin 500 mg capsule 500 mg PO QID 7 days #28 caps 04/02/25 doxycycline hyclate 100 mg capsule 100 mg PO BID 7 days #14 caps 04/02/25 ondansetron 4 mg disintegrating 4 mg PO Q8H PRN nausea and 04/02/25 tablet vomiting #20 tabs Allergies Allergy/AdvReac Type Severity Reaction Status Date / Time No Known Allergies Allergy Verified 04/02/25 11:03 Review of Systems Review of Systems: Constitutional : No Fever, No Chills ENT/Mouth : No sore throat, No Rhinorrhea Eyes: No Eye Pain, No Swelling, No Redness Cardiovascular : No Chest Pain, No SOB Respiratory : No Cough, No Sputum Gastrointestinal : No Nausea, No Vomiting, No Diarrhea, No abdominal Pain Genitourinary : No Dysuria, No Hematuria Musculoskeletal : No joint pain, No Myalgias, No Joint Swelling Skin : No Skin Lesions, positive skin rash Neuro : No Weakness, No Numbness, No Headache All other systems reviewed and are negative [facility] Past Medical History Attestation statement: The following information was validated with the patient. Source: old records reviewed Medical History Sleep apnea Hypertension Diabetes Surgical History Hx of surgical procedure (10/18/23) Hx of tonsillectomy Family History Family History Maternal Aunt Breast cancer Maternal Uncle Cancer Social History Social History Alcohol intake: current Alcohol intake frequency: a few times a month Comment: COUNTS CORRECT Patient Tobacco Use Status: Current someday Tobacco user Smoked in Last 30 Days: No Substance Use Type: Marijuana Substance Use Frequency: Occasionally Advance Directives: No Advance Directives Information Provided: Yes Physical Exam ED Vital Signs: Vital Signs - 24 hr 04/02/25 10:57 04/02/25 14:17 04/02/25 16:07 Temperature 98.9 F 98.3 F 97.8 F Pulse Rate 72 87 86 Respiratory Rate 20 16 16 Blood Pressure 152/105 H 117/72 116/77 Pulse Oximetry 99 98 97 Oxygen Delivery Method Room Air Room Air 04/02/25 16:34 Temperature 97.8 F Pulse Rate 86 Respiratory Rate 16 Blood Pressure 116/77 Pulse Oximetry 97 Oxygen Delivery Method Room Air BMI result Body Mass Index 50.9 Appearance: Alert. Oriented X3. No acute distress. Eyes: Pupils equal, round and reactive to light. ENT: Pharynx normal. Neck: Normal inspection. Neck supple. CVS: Pulses normal. Respiratory: No respiratory distress. Abdomen: Soft and nontender. obese Buttocks: L buttock open drained abscess with no further fluid and no surrounding erythema, there is no crepitus nothing tracks to perineum or near rectal area it is open about a size of a dime Skin: Skin warm and dry. Normal skin color. Extremities: No lower extremity edema. Neuro: Oriented X 3. No motor deficit. No sensory deficit. CN2-12 intact Course Course Course Narrative: This is a rapid medical exam performed by Saqib Guerrero NP: Additional HPI, ROS, PE not included below will be deferred to primary provider. Patient is a 30-year-old female presenting with mother who patient is requesting to be final operations technician with complaint of abscess to vaginal area x 2 days. Draining purulent discharge. Has been taking mother's left over keflex. Called primary who wanted to switch her to a different antibiotic but advised her to come here for a test first. Area not visualized in triage due to privacy concerns. Plan: Basic labs, hCG Medications Administered Discontinued Medications Generic Name Dose Route Start Last Admin Trade Name Freq PRN Reason Stop Dose Admin Cephalexin HCl 500 mg 04/02/25 16:17 04/02/25 16:27 Cephalexin 500 Mg Capsule PO 04/02/25 16:18 500 mg ONCE ONE Administration Doxycycline Monohydrate 100 mg 04/02/25 16:17 04/02/25 16:27 Doxycycline Monohydrate 100 Mg Capsule PO 04/02/25 16:18 100 mg ONCE ONE Administration Medical Decision Making Medical Decision Making [facility] Narrative: 30 yo female PMH of HTN / DM here with c/o L buttock boil s/p opening at home on clinical exam it is completely drained at this time no signs of mattie and no cellulitis spreading to rectal area or perineum at this time she is well appearing no systemic symptoms will start on cephalexin/ doxy and DC home Differential Diagnosis Differential Diagnoses: The differential diagnosis associated with the presentation includes abscess, cellulitis Admission/Observation Consideration of admission/observation: Escalation of care including admission/observation considered not toxic well appearing already drained can trial oral abx Lab Data MDM Lab Attestation statement: I reviewed the patient's lab results. 04/02/25 12:04 04/02/25 14:30 Labs: Lab Results 04/02/25 04/02/25 Range/Units 12:04 14:30 WBC 4.4 L (4.8-10.8) X10*3/uL RBC 4.94 (4.20-5.50) X10*6/uL Hgb 12.9 (12.0-16.0) g/dl Hct 41.0 (37.0-47.0) % MCV 83.0 (80.0-98.0) fL MCH 26.1 L (27.0-33.0) pg MCHC 31.5 (31.0-35.0) g/dl RDW 14.9 (11.0-16.0) % Plt Count 188 (160-400) X10*3/uL MPV 12.6 H (9.4-12.3) fL Immature Gran % (Auto) 0.7 H (0.0-0.4) % Neut % (Auto) 42.0 L (45-73) % Lymph % (Auto) 45.1 H (20-40) % Hernando % (Auto) 9.4 (2-11) % Eos % (Auto) 2.1 (0-4) % Baso % (Auto) 0.7 (0-2) % Lymph # (Auto) 2.0 (1.2-4.9) X10*3/uL Hernando # (Auto) 0.4 (0.1-1.2) X10*3/uL Eos # (Auto) 0.1 (0.0-0.4) X10*3/uL Baso # (Auto) 0.0 (0.0-0.2) X10*3/uL Abs Immat Gran (auto) 0.03 (0.00-0.03) X10*3/uL Absolute Neuts (auto) 1.8 L (2.0-8.3) x10*3/uL Absolute Nucleated RBC 0.000 (0.0-0.012) X10*3/uL Nucleated RBC % (auto) 0.0 (0.0-0.2) /100WBC Smear Tech's Comments VERIFIED Sodium 140 (135-145) mmol/L Potassium 4.1 (3.3-5.1) mmol/L Chloride 107 (96-108) mmol/L Carbon Dioxide 27 (22-29) mmol/L Anion Gap 10 L (12-20) BUN 10 (9-16) mg/dL Creatinine 0.73 (0.5-1.4) mg/dL Estim Creat Clear Calc 167.5 Estimated GFR > 60 Random Glucose 129 H (60-115) mg/dL Calcium 9.1 (8.4-10.2) mg/dL Total Bilirubin 0.5 (0.0-1.0) mg/dL AST 36 H (5-31) U/L ALT 26 (0-31) U/L Alkaline Phosphatase 114 (39-117) U/L Total Protein 7.9 (6.5-8.0) g/dL Albumin 3.9 (3.5-5.0) g/dL Beta HCG, Quant < 2 mIU/mL Independent Historian Clinical information obtained from an independent historian. History obtained from or confirmed by: Parent External Record Review External record reviewed: Outpatient record Prescription Management I considered prescription management with: Antibiotic Discharge Plan Discharge Clinical Impression: Abscess of skin or subcutaneous tissue Qualifiers: Site of cutaneous abscess: buttock Qualified Code(s): L02.31 - Cutaneous abscess of buttock Patient Disposition: Home, Self-Care Instructions: Abscess (ED) Additional Instructions: okay to shower and take sitz baths leave area alone return for any worsening symptoms or concerns. NEGATIVE TEST On a cephalosporin?antibiotic, softer bowel movements are to be expected. Call your provider if you move your bowels more than 4 times a day, your bowel movements are almost all liquid, or you get a rash.?? On doxycycline, do not take pills immediately before going to bed and swallow pills with plenty of water. Avoid direct sunlight, iron, antacids, and Pepto Bismol. Call your provider if you develop new ringing in your ears, new problems hearing, dizziness, difficulty swallowing, rash, abdominal discomfort, nausea, or diarrhea.? Prescriptions: New doxycycline hyclate 100 mg capsule 100 mg PO BID 7 Days Qty: 14 0RF cephalexin 500 mg capsule 500 mg PO QID 7 Days Qty: 28 0RF ondansetron 4 mg tablet,disintegrating 4 mg PO Q8H PRN (Reason: nausea and vomiting) Qty: 20 0RF No Action progesterone micronized [Prometrium] 200 mg capsule 200 mg PO BEDTIME 10 Days Qty: 30 3RF Rx Instructions: Take the pill 1 tablet a day cyclically every month from day 15-24 day 1 being the 1st day of next menstrual cycle amlodipine 10 mg tablet 10 mg PO DAILY Qty: 30 0RF ibuprofen 800 mg tablet 800 mg PO Q8H PRN (Reason: pain) Qty: 30 0RF metformin 500 mg tablet extended release 24 hr 1,500 mg PO DAILY ferrous sulfate 324 mg (65 mg iron) tablet,delayed release (DR/EC) 324 mg PO DAILY omeprazole 20 mg capsule,delayed release(DR/EC) 20 mg PO BID acetaminophen 325 mg tablet 650 mg PO TID PRN (Reason: mild pain) fluticasone propionate [Flovent HFA] 110 mcg/actuation HFA aerosol inhaler 2 puff inhalation BID albuterol sulfate [Ventolin HFA] 90 mcg/actuation HFA aerosol inhaler 2 puff inhalation Q4H PRN (Reason: wheezing) terconazole 0.8 % cream 1 appful vaginal BEDTIME 3 Days Qty: 20 0RF Interventions: ED Discharge Assessment Last Done: 04/02/25 16:34 Discharge Date/Time: 04/02/25 16:35 Print Language: Norwegian
[2025-04-02 12:17] LABS: Hematocrit 41.0 % (37.0-47.0); Hemoglobin 12.9 g/dl (12.0-16.0); Imm Gran Abs Auto 0.03 X10*3/uL (0.00-0.03); Imm Gran Pct Auto 0.7 % (0.0-0.4); Lymphocytes Absolute Auto 2.0 X10*3/uL (1.2-4.9); MANUAL DIFF FLAG SCAN; Mean Corpuscular HGB Conc 31.5 g/dl (31.0-35.0); Mean Corpuscular Hemoglobin 26.1 pg (27.0-33.0); Mean Corpuscular Volume 83.0 fL (80.0-98.0); NRBC Abs Auto 0.000 X10*3/uL (0.0-0.012); NRBC Pct Auto 0.0 /100WBC (0.0-0.2); PLT CLUMP 1; Red Blood Count 4.94 X10*6/uL (4.20-5.50); SCAN SMEAR FLAG 1
[2025-04-02 12:51] LABS: Platelet Count 188 X10*3/uL (160-400); White Blood Count 4.4 X10*3/uL (4.8-10.8)
[2025-04-02 14:17] VITALS: BP 117/72; PULSE 87; RESP 16; TEMP 36.8; O2SAT 98
[2025-04-02 14:59] LABS: Alanine Aminotransferase 26 U/L (0-31); Albumin Level 3.9 g/dL (3.5-5.0); Alkaline Phosphatase 114 U/L (39-117); Anion Gap 10 (12-20); Aspartate Amino Transferase 36 U/L (5-31); Blood Urea Nitrogen 10 mg/dL (9-16); Calcium 9.1 mg/dL (8.4-10.2); Carbon Dioxide 27 mmol/L (22-29); Chloride 107 mmol/L (96-108); Creatinine Clr Calc Pharmacy 167.5; Estimated Glomerular Filt Rate > 60; Potassium 4.1 mmol/L (3.3-5.1); Sodium 140 mmol/L (135-145); Total Protein 7.9 g/dL (6.5-8.0)
--- OUTSIDE RECORDS SUMMARY | 2025-04-02 15:41 | XMS_ITS | Clinical Summary ---
Author Organization [address] [facility] Address [address] [place] [address] Phone Care Team Providers Care Valve Assembler Name Role Phone Nan Samayoa MD Primary Care Provider [phone] Allergies No known active allergies Medications amLODIPine (NORVASC) 10 mg tablet Take 1 tablet (10 mg total) by mouth 1 (one) time each day. Active ibuprofen (ADVIL,MOTRIN) 800 mg tablet Take 1 tablet (800 mg total) by mouth if needed. 4 Active omeprazole (PriLOSEC) [address] capsule Take 1 capsule (20 mg total) by mouth 1 (one) time each day. 4 Active traMADoL (ULTRAM) 50 mg tablet 1 tablet (50 mg total) if needed. 4 Active tirzepatide (Mounjaro) 10 mg/0.5 mL injection Inject 0.5 mL (10 mg total) under the skin every 7 (seven) days. 2 mL 5 05/01/20 25 Active folic acid (FOLVITE) 1 mg tablet Take 1 tablet (1 mg total) by mouth 1 (one) time each day. 4 03/28/20 25 tirzepatide (Mounjaro) 7.5 mg/0.5 mL injection Inject 0.5 mL (7.5 mg total) under the skin every 7 (seven) days. 2 mL 5 04/01/20 25 Discontinue d(Dose adjustment) Active Problems Problem Noted Date Diagnosed Date Abnormal uterine bleeding 01/28/2025 Asthma, mild persistent 01/28/2025 Chronic lower back pain 01/28/2025 Female infertility, unspecified 01/28/2025 Snoring 01/28/2025 Uncontrolled daytime somnolence 01/28/2025 Type 2 diabetes mellitus ([facility] V24, [facility] V 28) 01/28/2025 Chronic GERD 01/28/2025 Pain in joint of right shoulder 08/28/2024 Class 3 severe obesity with body mass index (BMI) of 50.0 to 59.9 in adult ([facility] V24, [facility] V28) 07/07/2024 HTN (hypertension) 02/04/2024 Asthma 02/04/2024 HODA (obstructive sleep apnea) 02/04/2024 GERD (gastroesophageal reflux disease) Diabetes ([facility] V24, [facility] V28) 02/04/2024 Encounters Date Type Department Care Team Description 01/27/2025 9:00 AM EDT Office Visit Bariatric Surgery [address] [place] [id number] Mitch Contreras MD Class 3 severe obesity with body mass index (BMI) of 50.0 to 59.9 in adult, unspecified obesity type, unspecified whether serious comorbidity present ([facility] V24, [facility] V28) (Primary Dx) from Last 3 Months Social History Tobacco Use Types Packs/Day Years Used Date Smoking Tobacco: Never Assessed Comments Unknown Sex and Gender Information Value Date Recorded Sex Assigned at Not on file Legal Sex Female 2:26 PM EST Gender Identity Not on file Sexual Orientation Not on file Last Filed Vital Signs Vital Sign Reading Time Taken Comments Blood Pressure 116/80 01/27/2025 9:01 AM EDT Pulse 85 01/27/2025 9:01 AM EDT Temperature 36.6 C (97.8 F) 01/27/2025 9:01 AM EDT Respiratory Rate - - Oxygen Saturation - - Inhaled Oxygen Concentration - - Weight 149 kg (328 lb) 01/27/2025 9:01 AM EDT Height 170.2 cm (5' 7 ) 01/27/2025 9:01 AM EDT Body Mass Index 51.37 01/27/2025 9:01 AM EDT Plan of Treatment Upcoming Encounters Date Type Department Care Team (Late st Contact Info) Description 07/02/2025 2:45 PM EST Office Visit Bariatric Surgery [address] [place] [address] Mitch Contreras MD [address] [place] [phone] Health Maintenance Due Date Last Done Comments Diabetes: Annual GFR (Glomerular Filtration Rate) 1993 Diabetes: Annual Foot Exam 2003 Diabetes: Annual Retina Eye Exam 2003 Hepatitis B Vaccines (1 of 3 - 19+ 3-dose series) 2012 Pneumococcal Vaccine: Pediatrics (0 to 5 Years) and At-Risk Patients (6 to 49 Years) (1 of 2 - PCV) 2012 Cervical Cancer Screening: P ap Smear 2014 Cholesterol Screening (Lipid Panel) 05/06/2024 Diabetes: Annual Urine Albumin-Creatinine Ratio (uACR) 05/06/2024 Diabetes: Blood Sugar Contro l Test (HGBA1C) 05/06/2024 HIV Screening 05/06/2024 Hepatitis C Screening 05/06/2024 Hypertension/CHF/CAD Annual BMP Blood Test 05/06/2024 Social Influencers of Health Screening 05/06/2024 Depression Screening 07/30/2024 COVID-19 Vaccine (3 - 2024-2 6 season) 2025 12/23/2020, 11/26/2020 Influenza Vaccine (#1) 2025 06/10/2018 DTaP,Tdap,and Td Vaccines (2 - Td or Tdap) 06/10/2028 06/10/2018 HIB Vaccines Aged Out No longer eligi ble based on patient's age to complete this topic HPV Vaccines Aged Out No longer eligi ble based on patient's age to complete this topic Hepatitis A Vaccines Aged Out No long er eligible based on patient's age to complete this topic IPV Vaccines Aged Out No longer eligi ble based on patient's age to complete this topic MMR Vaccines Aged Out No longer eligi ble based on patient's age to complete this topic Meningococcal ACWY Vaccine Aged Out N o longer eligible based on patient's age to complete this topic Meningococcal B Vaccine Aged Out No l onger eligible based on patient's age to complete this topic RSV Immunization Patients Under 20 months Aged Out No longer eligible b ased on patient's age to complete this topic Varicella Vaccines Aged Out No longer eligible based on patient's age to complete this topic Insurance [employer] [place] [address] [id number] Care Teams Valve Assembler Relationship Specialty Start Date End Date Nan Samayoa MD [address] [place] [address] PHIL [place] PCP - General Internal Medicine 05/05/24
--- OUTSIDE RECORDS SUMMARY | 2025-04-02 15:41 | XMS_ITS | Patient Health Record ---
Author Organization [facility] Address [address] [facility] [address] [place], [place] [id number] Care Team Providers Care Marketing Technology Coordinator Name Role Phone Kwame Armenta [phone] Reason For Referral No Information Medications Medication SIG (Take, Route, Frequency, Duration) Notes Start Date End Date Status Simvastatin 10 MG 1 tablet in the evening Orally Once a day for 30 days hyperlipidemia 07/31/2019 Active Omeprazole 20 MG 1 capsule 30 minutes before morning meal Orally Once a day as needed for acid reflux Acid reflux: Doesn't take daily Active Social History Tobacco Use: Social History Observation Description Date Details (start date - stop date) Never Smoker NA - NA Sex Assigned At : Social History Observation Description Sex Assigned At Unknown Tobacco Use (OLD): Question Answer Notes Are you a: never smoker Sexual Hx: Question Answer Notes Had sex in the last 12 months (vaginal, oral, or anal)? Yes with Men only Use protection? No Prevention Strategies discussed: Other Have you ever had an STD? No Alcohol Screening (OLD): Question Answer Notes Did you have a drink containing alcohol in the p ast year? No Points 0 Interpretation Negative Problems Problem Type SNOMED Code ICD Code Onset Dates Problem Status W/U Status Risk Notes Problem 710506043 Hypertriglycerid emia (E78.1) Active confirmed Problem 901418040 Morbid (severe) obesity due to excess calories (E66.01) Active confirmed Problem 755186254 Gastroesophageal reflux disease, esophagitis presence not specified (K21.9) Active confirmed Problem 469971837 Prediabetes (R73.03) Active confirmed Plan Of Treatment Future Test Test Name Order Date COMPREHENSIVE METABOLIC PANEL 10/30/2019 LIPID PANEL, STANDARD (FASTING ONLY) 08/2019 COMPREHENSIVE METABOLIC PANEL 01/29/2020 HEMOGLOBIN A1C WITH MPG 01/29/2020 INSULIN 01/29/2020 LIPID PANEL, STANDARD (FASTING ONLY) 08/2019 Medical (General) History Surgical History Surgery Date(Month/Year)
[2025-04-02 16:07] VITALS: BP 116/77; PULSE 86; RESP 16; TEMP 36.6; O2SAT 97
[2025-04-02 16:34] VITALS: BP 116/77; PULSE 86; RESP 16; TEMP 36.6; O2SAT 97
== END 2025-04-02 16:35 | disposition home or self-care (01) ==
PROVIDERS: Registered Nurse Emergency; Emergency Provider Emergency Medicine; PCP Internal Medicine
DX: L02.31 Cutaneous abscess of buttock (principal); Z79.899 Other long term (current) drug therapy; F17.210 Nicotine dependence, cigarettes, uncomplicated
CPT/HCPCS: 36415; 80053; 84702; 85025; 99283; 99284